=== PATIENT | female | born 1955 | race Hispanic/Latino ===

== ENCOUNTER 2023-08-06 20:24 | Emergency (ER) | payer MEDICARE, SELFPAY ==
[2023-08-06 21:09] LABS: #Basophils 0.1 thou/uL (0.0-0.2); #Eosinphils 0.5 thou/uL (0.0-0.7); #Monocytes 0.6 thou/uL (0.11-0.59); #Neutrophils 6.2 thou/uL (1.40-6.50); %Basophils 0.7 % (0.0-1.0); %Monocytes 6.5 % (0.0-10.0); %Neutrophils 68.4 % (42.0-75.0); Hematocrit 29.1 % (36.0-47.0); Hemoglobin 9.9 g/dL (12.0-16.0); Mean Corpuscular Volume 82.2 fl (78.0-98.0); Mean Platelet Volume 9.4 fL (7.4-10.4); Platelet Count 274 10x3/uL (130-400); Red Blood Cell (RBC) Count 3.54 mill/uL (4.20-5.40); White Blood Cell (WBC) Count 9.1 10x3/uL (4.8-10.8)
[2023-08-06 21:35] LABS: ALT (SGPT) 9 U/L (8-55); AST (SGOT) 11 U/L (5-34); Albumin 3.3 g/dL (3.4-4.8); Alkaline Phosphatase 139 U/L (40-110); Anion Gap 12 mmol/L (10-20); BUN (Urea Nitrogen) 37 mg/dL (9.8-20.1); Bilirubin, Total 0.2 mg/dL (0.2-1.2); Calc. Creatinine Clearance 0 mL/min (70-130); Calcium 8.4 mg/dL (7.8-10.44); Carbon Dioxide 21 mmol/L (23-31); Chloride 100 mmol/L (98-107); Estimated GFR 14; Globulin 3.7 g/dL (2.4-3.5); Glucose 280 mg/dL (80-115); Lipase 45 U/L (8-78); Potassium 4.1 mmol/L (3.5-5.1); Sodium 129 mmol/L (136-145)
[2023-08-07 01:28] LABS: Pregnancy Test - Urine (BHCG) Negative (Negative)
[2023-08-07 01:29] LABS: Pregu Control Background? CLEAR/WHITE (CLR/WHITE); Pregu Control Bar Appear? YES (CONTROL BAR); Specific Gravity 1.007 (1.002-1.036)
[2023-08-07] MEDS ORDERED: Docusate 100 MG CAP PO SCH (01:30)
[2023-08-07 01:49] LABS: Troponin I Less than 0.010 ng/mL (< 0.028)
[2023-08-07 03:03] LABS: Bacteria/HPF None Seen HPF (None Seen); Bilirubin Negative (Negative); Blood, Urine Trace (Negative); CAUTI Indications for Culture Pelvic or flank pain; Clarity Clear (Clear); Glucose, Urine (Dipstick) 300 mg/dL (Negative); Ketone, Urine Negative (Negative); Leukocyte Negative Leu/uL (Negative); Nitrite Negative (Negative); Protein, Urine (Dipstick) 300 mg/dL (Neg-Trace); RBC/HPF None Seen HPF (0-3); Specific Gravity, Urine 1.007 (1.002-1.036); Squamous Epithelial None Seen HPF (0-3); Urobilinogen Normal mg/dL (Less than 2); WBC/HPF 0-3 HPF (0-3); pH, Urine 6.5 (5.0-9.0)
[2023-08-07 03:05] LABS: Urine Culture Reflex No No
== END 2023-08-07 03:30 | disposition home or self-care (01) ==
LOC: ERS 20:24
DX: R10.12 Left upper quadrant pain (principal); I12.9 Hypertensive chronic kidney disease with stage 1 through stage 4 chronic kidney disease, or unspecified chronic kidney disease; E11.22 Type 2 diabetes mellitus with diabetic chronic kidney disease; N18.9 Chronic kidney disease, unspecified; Z79.899 Other long term (current) drug therapy
CPT/HCPCS: 36415; 71045; 80053; 81001; 81025; 83690; 84484; 85025; 93005; 96360

== ENCOUNTER 2024-04-30 01:48 | Inpatient (IN) | payer MEDICARE ==
[2024-04-30] MEDS ORDERED: Acetaminophen 650 MG Suppository PR PRN (02:47)
[2024-04-30] MEDS ORDERED: Ondansetron ODT 4 MG TAB PO PRN (02:47)
[2024-04-30] MEDS ORDERED: Ondansetron PF 4 MG/2 ML Vial IVP PRN (02:47)
[2024-04-30] MEDS ORDERED: diphenhydrAMINE 25 MG CAP PO PRN (02:57)
[2024-04-30 03:11] VITALS: BMI 28.0
[2024-04-30] MEDS: Racepinephrine 2.25% 0.5 ML NEB NEB PRN (03:14)
[2024-04-30] MEDS: Acetaminophen 325 MG TAB PO SCH (03:44)
[2024-04-30 04:27] LABS: #Basophils Less than 0.03 10x3/uL (0.0-0.2); #Eosinophils Less than 0.03 10x3/uL (0.0-0.7); %Basophils 0.2 % (0.0-1.0); %Lymphocytes 9.3 % (21.0-51.0); %Monocytes 1.5 % (0.0-10.0); %Neutrophils 88.5 % (42.0-75.0); Hematocrit 30.2 % (36.0-47.0); Hemoglobin 9.1 g/dL (12.0-16.0); Mean Corpuscular HGB CONC 30.1 g/dL (32.0-36.0); Mean Corpuscular Hemoglobin 29.1 pg (27.0-31.0); Mean Corpuscular Volume 96.5 fL (78.0-98.0); Mean Platelet Volume 8.4 fL (7.4-10.4); Platelet Count 218 10x3/uL (130-400); RBC Distribution Width 18.2 % (11.5-14.5); Red Blood Cell (RBC) Count 3.13 mill/uL (4.20-5.40)
[2024-04-30 04:54] LABS: ALT (SGPT) 15 U/L (8-55); AST (SGOT) 18 U/L (5-34); Albumin 2.4 g/dL (3.4-4.8); Alkaline Phosphatase 176 U/L (40-110); Anion Gap 19 mmol/L (10-20); BUN (Urea Nitrogen) 33 mg/dL (9.8-20.1); Bilirubin, Total 0.5 mg/dL (0.2-1.2); Calc. Creatinine Clearance 17 mL/min (70-130); Carbon Dioxide 21 mmol/L (23-31); Chloride 92 mmol/L (98-107); Estimated GFR 14; Globulin 4.2 g/dL (2.4-3.5); Glucose 157 mg/dL (80-115); Magnesium 1.9 mg/dL (1.6-2.6); Potassium 5.4 mmol/L (3.5-5.1); Protein, Total 6.6 g/dL (5.8-8.1); Sodium 127 mmol/L (136-145)
[2024-04-30] MEDS ORDERED: Furosemide 40 MG (4 mL) VIAL SLOW IVP SCH (06:00)
[2024-04-30] MEDS: Levothyroxine Sodium 25 MCG TAB PO SCH ×2 (06:09→11:04)
[2024-04-30] MEDS: Dexamethasone 4 mg/ml Vial SLOW IVP SCH (06:10)
[2024-04-30] MEDS: Dronedarone HCl 400 MG TAB PO SCH (09:24)
[2024-04-30] MEDS: Famotidine/PF 20 mg/2ml Vial SLOW IVP SCH (09:24)
[2024-04-30] MEDS: Metoprolol Tartrate 25 MG TAB PO SCH (09:25)
[2024-04-30] MEDS: NIFEdipine XL 30 MG ER.TAB PO SCH (09:25)
[2024-04-30] MEDS: Apixaban 5 MG TAB PO SCH (09:25)
[2024-04-30] MEDS: guaiFENesin ER 600 MG TAB PO SCH (09:26)
[2024-04-30] MEDS: Cholecalciferol 1,000 UNITS (25 MCG) TAB PO SCH (09:26)
[2024-04-30] MEDS: Famotidine 20 MG TAB PO SCH (09:26)
[2024-04-30 11:08] LABS: HBSAB Concentration Less than 8.00 mIU/mL; HBsAg Index 0.32 S/CO (0-0.99); Hep B Core Total Ab NONREACTIVE (NonReactive); Hep B Core Total Index 0.27 S/CO (0-0.79); Hep B Surf AB NONREACTIVE (NonReactive); Hep B Surf Ag NONREACTIVE S/CO (NonReactive); Hep C IgG Ab NONREACTIVE S/CO (NonReactive); Hep C Index 0.18 S/CO (0-0.79)
[2024-04-30] MEDS ORDERED: Glucagon 1 MG/ML KIT IM PRN (12:45)
[2024-04-30] MEDS ORDERED: Dextrose 50% Abboject 50 ML SYRINGE SLOW IVP PRN (12:45)
[2024-04-30] MEDS ORDERED: Dextrose 5% in Water 1,000 ML IV PRN (12:45)
[2024-04-30] MEDS: Ipratropium/Albuterol 3 ML NEB NEB SCH (12:58)
[2024-04-30] MEDS: Racepinephrine 2.25% 0.5 ML NEB NEB SCH (12:58)
[2024-04-30 14:17] VITALS: BMI 28.0
[2024-04-30] MEDS ORDERED: Acetaminophen 325 MG TAB PO PRN (15:54)
[2024-04-30] MEDS ORDERED: Racepinephrine 2.25% 0.5 ML NEB NEB SCH (21:00)
[2024-04-30] MEDS: FLU (Fluad Triv) TS24-25 (65UP)/MF59C/PF 45 MCG/0.5 ML Syringe IM ONE (21:33)
[2024-04-30] MEDS: Insulin Lispro 100 UNIT/ML 10 ML VIAL SC PRN (22:22)
[2024-05-01 04:34] LABS: #Basophils Less than 0.03 10x3/uL (0.0-0.2); #Eosinophils Less than 0.03 10x3/uL (0.0-0.7); %Basophils 0.2 % (0.0-1.0); %Lymphocytes 13.4 % (21.0-51.0); %Monocytes 6.9 % (0.0-10.0); %Neutrophils 79.1 % (42.0-75.0); Hematocrit 23.8 % (36.0-47.0); Hemoglobin 7.3 g/dL (12.0-16.0); Mean Corpuscular HGB CONC 30.7 g/dL (32.0-36.0); Mean Corpuscular Hemoglobin 28.5 pg (27.0-31.0); Mean Platelet Volume 8.4 fL (7.4-10.4); Platelet Count 260 10x3/uL (130-400); RBC Distribution Width 18.1 % (11.5-14.5); Red Blood Cell (RBC) Count 2.56 mill/uL (4.20-5.40)
[2024-05-01] MEDS: Levothyroxine Sodium 25 MCG TAB PO SCH (05:05)
[2024-05-01 05:11] LABS: Anion Gap 15 mmol/L (10-20); BUN (Urea Nitrogen) 18 mg/dL (9.8-20.1); Calc. Creatinine Clearance 30 mL/min (70-130); Calcium 7.7 mg/dL (7.8-10.44); Carbon Dioxide 26 mmol/L (23-31); Chloride 96 mmol/L (98-107); Estimated GFR 26; Glucose 199 mg/dL (80-115); Potassium 4.5 mmol/L (3.5-5.1); Sodium 132 mmol/L (136-145)
[2024-05-01] MEDS: Famotidine/PF 20 mg/2ml Vial SLOW IVP SCH (08:05)
[2024-05-01] MEDS: Famotidine 20 MG TAB PO SCH (08:05)
[2024-05-01] MEDS: Aquaphor 2.8 oz 80 GM JAR TOP SCH (08:05)
[2024-05-01] MEDS ORDERED: Aquaphor 10 GM TUBE TOP SCH (09:00)
[2024-05-01] MEDS: Amoxicillin/Potassium Clav 500 MG TAB PO SCH (20:32)
[2024-05-02 04:38] LABS: #Basophils Less than 0.03 10x3/uL (0.0-0.2); #Eosinophils Less than 0.03 10x3/uL (0.0-0.7); %Lymphocytes 5.9 % (21.0-51.0); %Neutrophils 89.7 % (42.0-75.0); Hematocrit 25.9 % (36.0-47.0); Hemoglobin 7.7 g/dL (12.0-16.0); Mean Corpuscular HGB CONC 29.7 g/dL (32.0-36.0); Mean Corpuscular Hemoglobin 28.7 pg (27.0-31.0); Mean Corpuscular Volume 96.6 fL (78.0-98.0); Mean Platelet Volume 8.6 fL (7.4-10.4); Platelet Count 231 10x3/uL (130-400); RBC Distribution Width 18.3 % (11.5-14.5); Red Blood Cell (RBC) Count 2.68 mill/uL (4.20-5.40)
[2024-05-02 05:13] LABS: Anion Gap 20 mmol/L (10-20); BUN (Urea Nitrogen) 31 mg/dL (9.8-20.1); Calc. Creatinine Clearance 21 mL/min (70-130); Calcium 7.9 mg/dL (7.8-10.44); Carbon Dioxide 21 mmol/L (23-31); Chloride 92 mmol/L (98-107); Estimated GFR 17; Glucose 252 mg/dL (80-115); Potassium 5.1 mmol/L (3.5-5.1); Sodium 128 mmol/L (136-145)
[2024-05-02] MEDS ORDERED: Heparin 10,000 UNITS/ 10 ML VIAL ONE (10:26)
[2024-05-02] MEDS: EPOETIN ALFA-EPBX (ESRD) 10,000 UNITS/ML VIAL IVP SCH (11:50)
[2024-05-02] MEDS: guaiFENesin ER 600 MG TAB PO SCH (20:09)
[2024-05-02] MEDS: Ipratropium/Albuterol 3 ML NEB NEB PRN (22:05)
[2024-05-03 17:06] VITALS: BP 137/65
[2024-05-03 21:15] VITALS: TEMP 98.6
== END 2024-05-03 23:35 | disposition short-term general hospital (02) | DRG 154 ==
LOC: IMCU/EMU 02:42 → CCU 02:44
PROVIDERS: ADMIT Student in an Organized Health Care Education/Training Program; ATTEND Internal Medicine
DX: J38.6 Stenosis of larynx (principal); N18.6 End stage renal disease; I50.42 Chronic combined systolic (congestive) and diastolic (congestive) heart failure; E87.1 Hypo-osmolality and hyponatremia; I48.91 Unspecified atrial fibrillation; Z79.01 Long term (current) use of anticoagulants; Z79.899 Other long term (current) drug therapy; E87.5 Hyperkalemia; D64.9 Anemia, unspecified; E11.22 Type 2 diabetes mellitus with diabetic chronic kidney disease; L21.9 Seborrheic dermatitis, unspecified; J01.90 Acute sinusitis, unspecified; Z79.4 Long term (current) use of insulin
CPT/HCPCS: 36415; 36416; 70491; 71045; 80048; 80053; 82607; 82805; 83090; 83605; 83735; 83880; 84443; 84484; 85025; 86704; 86706; 86803; 86850; 86900; 86901; 87040; 87340; 90935; 93005; 94640; 96374; 97139; G0257; J1100; J1644; J1815; J3490; J7620; Q5105; Q9967

== ENCOUNTER 2024-05-07 16:40 | Inpatient (IN) | payer MEDICARE ==
[2024-05-08] MEDS ORDERED: Acetaminophen 650 MG Suppository PR PRN (19:59)
[2024-05-08] MEDS ORDERED: Ondansetron PF 4 MG/2 ML Vial IVP PRN (19:59)
[2024-05-08] MEDS: Famotidine 20 MG TAB PO SCH (21:51)
[2024-05-08] MEDS: Famotidine/PF 20 mg/2ml Vial SLOW IVP SCH (22:02)
[2024-05-09 01:52] LABS: #Basophils Less than 0.03 10x3/uL (0.0-0.2); %Basophils 0.2 % (0.0-1.0); %Eosinophils 5.5 % (0.0-10.0); %Lymphocytes 24.5 % (21.0-51.0); %Monocytes 10.6 % (0.0-10.0); %Neutrophils 58.8 % (42.0-75.0); Hematocrit 28.6 % (36.0-47.0); Hemoglobin 8.6 g/dL (12.0-16.0); Mean Corpuscular HGB CONC 30.1 g/dL (32.0-36.0); Mean Corpuscular Hemoglobin 29.4 pg (27.0-31.0); Mean Corpuscular Volume 97.6 fL (78.0-98.0); Mean Platelet Volume 8.6 fL (7.4-10.4); Platelet Count 246 10x3/uL (130-400); RBC Distribution Width 16.5 % (11.5-14.5); Red Blood Cell (RBC) Count 2.93 mill/uL (4.20-5.40)
[2024-05-09 02:27] LABS: Albumin 2.1 g/dL (3.4-4.8); Chloride 94 mmol/L (98-107); Potassium 4.9 mmol/L (3.5-5.1); Sodium 123 mmol/L (136-145)
[2024-05-09 02:28] LABS: Calcium 7.2 mg/dL (7.8-10.44); Glucose 120 mg/dL (80-115)
[2024-05-09 02:29] LABS: Globulin 3.2 g/dL (2.4-3.5); Protein, Total 5.3 g/dL (5.8-8.1)
[2024-05-09 02:30] LABS: Anion Gap 13 mmol/L (10-20); Carbon Dioxide 21 mmol/L (23-31)
[2024-05-09 02:31] LABS: Alkaline Phosphatase 126 U/L (40-110); Bilirubin, Total 0.3 mg/dL (0.2-1.2)
[2024-05-09 02:32] LABS: BUN (Urea Nitrogen) 34 mg/dL (9.8-20.1); Calc. Creatinine Clearance 27 mL/min (70-130); Estimated GFR 23
[2024-05-09 02:34] LABS: ALT (SGPT) Less than 5 U/L (8-55); AST (SGOT) 15 U/L (5-34)
[2024-05-09] MEDS: Sodium Chloride 0.9% 1,000 ML IV SCH (02:51)
[2024-05-09] MEDS ORDERED: traMADol HCl 50 MG TAB PO PRN (03:27)
[2024-05-09] MEDS ORDERED: Ipratropium/Albuterol 3 ML NEB NEB PRN (03:27)
[2024-05-09] MEDS ORDERED: Loperamide HCl 2 MG CAP PER TUBE PRN (03:27)
[2024-05-09] MEDS ORDERED: Dextrose 50% Abboject 50 ML SYRINGE SLOW IVP PRN (03:30)
[2024-05-09] MEDS ORDERED: Insulin Lispro 100 UNIT/ML 10 ML VIAL SC PRN (03:30)
[2024-05-09] MEDS ORDERED: Glucagon 1 MG/ML KIT IM PRN (03:30)
[2024-05-09] MEDS ORDERED: Dextrose 5% in Water 1,000 ML IV PRN (03:30)
[2024-05-09] MEDS: Scopolamine 1 mg/72 hour Patch TD SCH (05:28)
[2024-05-09] MEDS: Levothyroxine Sodium 25 MCG TAB PO SCH (05:32)
[2024-05-09] MEDS ORDERED: NIFEdipine XL 30 MG ER.TAB PO SCH (09:00)
[2024-05-09] MEDS ORDERED: Heparin 10,000 UNITS/ 10 ML VIAL ONE (11:36)
[2024-05-09] MEDS: Calcium Acetate 667 MG CAP PO SCH (13:16)
[2024-05-09] MEDS: Apixaban 5 MG TAB PO SCH (14:22)
[2024-05-09] MEDS: Dronedarone HCl 400 MG TAB PO SCH (14:22)
[2024-05-09] MEDS: Cholecalciferol 1,000 UNITS (25 MCG) TAB PO SCH (14:22)
[2024-05-09] MEDS: Famotidine 20 MG TAB PO SCH (14:22)
[2024-05-09] MEDS: Famotidine/PF 20 mg/2ml Vial SLOW IVP SCH (14:23)
[2024-05-09] MEDS: Metoprolol Tartrate 25 MG TAB PO SCH (14:24)
[2024-05-09] MEDS: Acetaminophen 325 MG TAB PO PRN (23:48)
[2024-05-11] MEDS: Tuberculin PPD 0.1 ML SYRINGE (10 TEST VIAL) I-DERMAL SCH (13:13)
[2024-05-12 05:53] LABS: #Basophils Less than 0.03 10x3/uL (0.0-0.2); %Basophils 0.4 % (0.0-1.0); %Eosinophils 3.5 % (0.0-10.0); %Lymphocytes 21.4 % (21.0-51.0); %Monocytes 15.5 % (0.0-10.0); Hematocrit 23.7 % (36.0-47.0); Hemoglobin 7.2 g/dL (12.0-16.0); Mean Corpuscular HGB CONC 30.4 g/dL (32.0-36.0); Mean Corpuscular Hemoglobin 29.6 pg (27.0-31.0); Mean Corpuscular Volume 97.5 fL (78.0-98.0); Mean Platelet Volume 8.8 fL (7.4-10.4); Platelet Count 191 10x3/uL (130-400); RBC Distribution Width 15.7 % (11.5-14.5); Red Blood Cell (RBC) Count 2.43 mill/uL (4.20-5.40)
[2024-05-12 07:50] LABS: Anion Gap 14 mmol/L (10-20); BUN (Urea Nitrogen) 42 mg/dL (9.8-20.1); Calc. Creatinine Clearance 22 mL/min (70-130); Calcium 7.5 mg/dL (7.8-10.44); Carbon Dioxide 22 mmol/L (23-31); Chloride 91 mmol/L (98-107); Estimated GFR 16; Glucose 100 mg/dL (80-115); Potassium 5.5 mmol/L (3.5-5.1); Sodium 121 mmol/L (136-145)
[2024-05-12 08:52] LABS: HBSAB Concentration Less than 8.00 mIU/mL; HBsAg Index 0.36 S/CO (0-0.99); Hep B Core Total Ab NONREACTIVE (NonReactive); Hep B Surf AB NONREACTIVE (NonReactive); Hep B Surf Ag NONREACTIVE S/CO (NonReactive); Hep C IgG Ab NONREACTIVE S/CO (NonReactive); Hep C Index 0.12 S/CO (0-0.79)
[2024-05-12] MEDS ORDERED: Epoetin (ESRD) 20,000 UNITS/ML MDV IVP SCH (10:30)
[2024-05-12] MEDS: EPOETIN ALFA-EPBX (ESRD) 10,000 UNITS/ML VIAL IVP SCH (17:00)
[2024-05-12] MEDS: Insulin Lispro 100 UNIT/ML 10 ML VIAL SC PRN (17:18)
[2024-05-13 05:45] LABS: #Basophils Less than 0.03 10x3/uL (0.0-0.2); %Basophils 0.4 % (0.0-1.0); %Eosinophils 2.9 % (0.0-10.0); %Lymphocytes 27.2 % (21.0-51.0); %Monocytes 16.6 % (0.0-10.0); %Neutrophils 52.5 % (42.0-75.0); Hematocrit 23.9 % (36.0-47.0); Hemoglobin 7.6 g/dL (12.0-16.0); Mean Corpuscular HGB CONC 31.8 g/dL (32.0-36.0); Mean Corpuscular Hemoglobin 30.2 pg (27.0-31.0); Mean Corpuscular Volume 94.8 fL (78.0-98.0); Mean Platelet Volume 8.2 fL (7.4-10.4); Platelet Count 237 10x3/uL (130-400); RBC Distribution Width 15.7 % (11.5-14.5); Red Blood Cell (RBC) Count 2.52 mill/uL (4.20-5.40)
[2024-05-13 06:07] LABS: Anion Gap 9 mmol/L (10-20); BUN (Urea Nitrogen) 17 mg/dL (9.8-20.1); Calc. Creatinine Clearance 35 mL/min (70-130); Calcium 7.7 mg/dL (7.8-10.44); Carbon Dioxide 28 mmol/L (23-31); Chloride 95 mmol/L (98-107); Estimated GFR 28; Glucose 81 mg/dL (80-115); Potassium 4.4 mmol/L (3.5-5.1); Sodium 128 mmol/L (136-145)
[2024-05-13] MEDS: FLU (Fluad Triv) TS24-25 (65UP)/MF59C/PF 45 MCG/0.5 ML Syringe IM ONE (08:33)
[2024-05-14 06:55] LABS: Anion Gap 13 mmol/L (10-20); BUN (Urea Nitrogen) 23 mg/dL (9.8-20.1); Calc. Creatinine Clearance 27 mL/min (70-130); Calcium 7.8 mg/dL (7.8-10.44); Carbon Dioxide 26 mmol/L (23-31); Chloride 93 mmol/L (98-107); Estimated GFR 20; Glucose 82 mg/dL (80-115); Potassium 4.7 mmol/L (3.5-5.1); Sodium 127 mmol/L (136-145)
[2024-05-14] MEDS ORDERED: Heparin 10,000 UNITS/ 10 ML VIAL ONE (08:48)
[2024-05-14] MEDS: Ondansetron ODT 4 MG TAB PO PRN (15:53)
[2024-05-15 06:19] LABS: #Basophils 0.04 10x3/uL (0.0-0.2); %Basophils 0.9 % (0.0-1.0); %Lymphocytes 21.1 % (21.0-51.0); %Monocytes 12.5 % (0.0-10.0); %Neutrophils 62.3 % (42.0-75.0); Hemoglobin 7.6 g/dL (12.0-16.0); Mean Corpuscular HGB CONC 31.7 g/dL (32.0-36.0); Mean Corpuscular Hemoglobin 29.7 pg (27.0-31.0); Mean Corpuscular Volume 93.8 fL (78.0-98.0); Mean Platelet Volume 8.4 fL (7.4-10.4); Platelet Count 228 10x3/uL (130-400); Red Blood Cell (RBC) Count 2.56 mill/uL (4.20-5.40)
[2024-05-15 06:35] LABS: Anion Gap 10 mmol/L (10-20); BUN (Urea Nitrogen) 12 mg/dL (9.8-20.1); Calc. Creatinine Clearance 39 mL/min (70-130); Calcium 7.8 mg/dL (7.8-10.44); Carbon Dioxide 27 mmol/L (23-31); Chloride 96 mmol/L (98-107); Estimated GFR 31; Glucose 81 mg/dL (80-115); Potassium 3.8 mmol/L (3.5-5.1); Sodium 129 mmol/L (136-145)
[2024-05-15] MEDS: Scopolamine 1 mg/72 hour Patch TD SCH (09:36)
[2024-05-15] MEDS: diphenhydrAMINE 25 MG CAP PER TUBE PRN (20:49)
[2024-05-16 05:58] LABS: Anion Gap 12 mmol/L (10-20); BUN (Urea Nitrogen) 15 mg/dL (9.8-20.1); Calc. Creatinine Clearance 29 mL/min (70-130); Calcium 7.9 mg/dL (7.8-10.44); Carbon Dioxide 26 mmol/L (23-31); Chloride 96 mmol/L (98-107); Estimated GFR 22; Glucose 83 mg/dL (80-115); Potassium 4.2 mmol/L (3.5-5.1); Sodium 130 mmol/L (136-145)
[2024-05-16] MEDS ORDERED: Heparin 10,000 UNITS/ 10 ML VIAL ONE (08:54)
[2024-05-17 04:38] LABS: Anion Gap 10 mmol/L (10-20); BUN (Urea Nitrogen) 8 mg/dL (9.8-20.1); Calc. Creatinine Clearance 39 mL/min (70-130); Carbon Dioxide 29 mmol/L (23-31); Chloride 97 mmol/L (98-107); Estimated GFR 31; Glucose 85 mg/dL (80-115); Potassium 3.8 mmol/L (3.5-5.1); Sodium 132 mmol/L (136-145)
[2024-05-17] MEDS: Benzonatate 100 MG CAP PO SCH (13:12)
[2024-05-18 05:27] LABS: #Basophils 0.04 10x3/uL (0.0-0.2); %Basophils 0.6 % (0.0-1.0); %Lymphocytes 23.3 % (21.0-51.0); %Monocytes 8.3 % (0.0-10.0); %Neutrophils 61.5 % (42.0-75.0); Hematocrit 26.3 % (36.0-47.0); Hemoglobin 8.3 g/dL (12.0-16.0); Mean Corpuscular HGB CONC 31.6 g/dL (32.0-36.0); Mean Corpuscular Hemoglobin 29.5 pg (27.0-31.0); Mean Corpuscular Volume 93.6 fL (78.0-98.0); Mean Platelet Volume 8.3 fL (7.4-10.4); Platelet Count 227 10x3/uL (130-400); RBC Distribution Width 14.8 % (11.5-14.5); Red Blood Cell (RBC) Count 2.81 mill/uL (4.20-5.40)
[2024-05-18 06:07] LABS: Anion Gap 10 mmol/L (10-20); BUN (Urea Nitrogen) 11 mg/dL (9.8-20.1); Calc. Creatinine Clearance 27 mL/min (70-130); Carbon Dioxide 26 mmol/L (23-31); Chloride 97 mmol/L (98-107); Estimated GFR 20; Glucose 81 mg/dL (80-115); Potassium 4.1 mmol/L (3.5-5.1); Sodium 129 mmol/L (136-145)
[2024-05-19 10:47] LABS: Anion Gap 12 mmol/L (10-20); BUN (Urea Nitrogen) 15 mg/dL (9.8-20.1); Calc. Creatinine Clearance 21 mL/min (70-130); Calcium 8.3 mg/dL (7.8-10.44); Carbon Dioxide 25 mmol/L (23-31); Chloride 95 mmol/L (98-107); Estimated GFR 15; Glucose 115 mg/dL (80-115); Potassium 4.7 mmol/L (3.5-5.1); Sodium 127 mmol/L (136-145)
[2024-05-19] MEDS ORDERED: Heparin 10,000 UNITS/ 10 ML VIAL ONE (14:40)
[2024-05-19] MEDS: Metoprolol Tartrate 25 MG TAB PO SCH (20:38)
[2024-05-21 10:22] LABS: #Basophils 0.03 10x3/uL (0.0-0.2); %Basophils 0.6 % (0.0-1.0); %Eosinophils 8.3 % (0.0-10.0); %Lymphocytes 29.1 % (21.0-51.0); %Monocytes 11.2 % (0.0-10.0); %Neutrophils 50.6 % (42.0-75.0); Hematocrit 24.7 % (36.0-47.0); Hemoglobin 7.9 g/dL (12.0-16.0); Mean Corpuscular Hemoglobin 30.2 pg (27.0-31.0); Mean Corpuscular Volume 94.3 fL (78.0-98.0); Mean Platelet Volume 8.4 fL (7.4-10.4); Platelet Count 211 10x3/uL (130-400); RBC Distribution Width 14.6 % (11.5-14.5); Red Blood Cell (RBC) Count 2.62 mill/uL (4.20-5.40)
[2024-05-21] MEDS ORDERED: Heparin 10,000 UNITS/ 10 ML VIAL ONE (13:48)
[2024-05-21 18:41] LABS: Anion Gap 9 mmol/L (10-20); BUN (Urea Nitrogen) 12 mg/dL (9.8-20.1); Calc. Creatinine Clearance 50 mL/min (70-130); Calcium 7.8 mg/dL (7.8-10.44); Carbon Dioxide 28 mmol/L (23-31); Chloride 97 mmol/L (98-107); Estimated GFR 42; Glucose 145 mg/dL (80-115); Potassium 3.2 mmol/L (3.5-5.1); Sodium 131 mmol/L (136-145)
[2024-05-22] MEDS: Ipratropium/Albuterol 3 ML NEB NEB SCH (14:59)
[2024-05-22] MEDS: Simethicone Chewable 80 MG TAB PO PRN (20:16)
[2024-05-23 05:38] LABS: #Basophils 0.11 10x3/uL (0.0-0.2); %Basophils 1.2 % (0.0-1.0); %Eosinophils 0.6 % (0.0-10.0); %Lymphocytes 16.5 % (21.0-51.0); %Monocytes 15.5 % (0.0-10.0); %Neutrophils 64.2 % (42.0-75.0); Hematocrit 32.2 % (36.0-47.0); Hemoglobin 10.2 g/dL (12.0-16.0); Mean Corpuscular HGB CONC 31.7 g/dL (32.0-36.0); Mean Corpuscular Hemoglobin 29.8 pg (27.0-31.0); Mean Corpuscular Volume 94.2 fL (78.0-98.0); Mean Platelet Volume 8.6 fL (7.4-10.4); Platelet Count 256 10x3/uL (130-400); RBC Distribution Width 14.6 % (11.5-14.5); Red Blood Cell (RBC) Count 3.42 mill/uL (4.20-5.40)
[2024-05-23 05:59] LABS: Anion Gap 13 mmol/L (10-20); BUN (Urea Nitrogen) 25 mg/dL (9.8-20.1); Calc. Creatinine Clearance 26 mL/min (70-130); Calcium 8.2 mg/dL (7.8-10.44); Carbon Dioxide 22 mmol/L (23-31); Chloride 95 mmol/L (98-107); Estimated GFR 19; Glucose 97 mg/dL (80-115); Magnesium 1.8 mg/dL (1.6-2.6); Sodium 126 mmol/L (136-145)
[2024-05-23] MEDS ORDERED: Heparin 10,000 UNITS/ 10 ML VIAL ONE (11:01)
[2024-05-23] MEDS: Ondansetron PF 4 MG/2 ML Vial IVP PRN (15:45)
[2024-05-23] MEDS ORDERED: Metoclopramide HCl 10 MG (2 mL) VIAL IVP PRN (17:53)
[2024-05-23] MEDS ORDERED: Vancomycin 1 GM in Premix 1 BAG IVPB SCH ×2 (18:40→21:00)
[2024-05-23] MEDS ORDERED: HOLD VANCOMYCIN FOR LEVEL >20 IVP SCH (19:00)
[2024-05-23] MEDS ORDERED: Vancomycin Dose by Levels Sliding Scale (Wt 71-99) FS SCH (19:00)
[2024-05-23] MEDS ORDERED: Sodium Chloride 0.9% 1,000 ML IV SCH (20:30)
[2024-05-23] MEDS: Albumin 25% 25 GM (100 mL) BOT IVPB SCH (20:48)
[2024-05-23] MEDS: Sodium Chloride 0.9% 500 ML IV SCH ×2 (20:49→23:10)
[2024-05-23] MEDS: Midodrine HCl 5 MG TAB PO SCH (20:49)
[2024-05-23 20:59] LABS: #Basophils Less than 0.03 10x3/uL (0.0-0.2); #Eosinophils Less than 0.03 10x3/uL (0.0-0.7); %Basophils 0.3 % (0.0-1.0); %Eosinophils 0.1 % (0.0-10.0); %Lymphocytes 15.8 % (21.0-51.0); %Monocytes 18.8 % (0.0-10.0); %Neutrophils 61.4 % (42.0-75.0); Hematocrit 25.3 % (36.0-47.0); Mean Corpuscular HGB CONC 31.6 g/dL (32.0-36.0); Mean Corpuscular Hemoglobin 29.4 pg (27.0-31.0); Mean Platelet Volume 8.4 fL (7.4-10.4); Platelet Count 191 10x3/uL (130-400); RBC Distribution Width 14.4 % (11.5-14.5); Red Blood Cell (RBC) Count 2.72 mill/uL (4.20-5.40)
[2024-05-23] MEDS: Cefepime 1 GM in Sodium Chloride 0.9% 100 ML IVPB SCH (21:08)
[2024-05-23 21:10] LABS: Magnesium 1.7 mg/dL (1.6-2.6)
[2024-05-23] MEDS: Vancomycin (BATCH) 1.5 GM in Premix 1 BAG IVPB SCH (21:50)
[2024-05-24] MEDS: Sodium Chloride 0.9% 500 ML IV SCH (02:07)
[2024-05-24] MEDS: NOREPINEPHRINE 8 MG/250 ML-D5W 250 ML IVPB SCH (02:54)
[2024-05-24 05:24] LABS: Lactic Acid 1.25 mmol/L (0.5-2.2)
[2024-05-24 05:30] LABS: Anion Gap 9 mmol/L (10-20); BUN (Urea Nitrogen) 16 mg/dL (9.8-20.1); Calc. Creatinine Clearance 4 mL/min (70-130); Calcium 7.4 mg/dL (7.8-10.44); Carbon Dioxide 26 mmol/L (23-31); Chloride 100 mmol/L (98-107); Estimated GFR 27; Glucose 88 mg/dL (80-115); Potassium 2.9 mmol/L (3.5-5.1); Sodium 132 mmol/L (136-145)
[2024-05-24 05:46] LABS: Hematocrit 24.4 % (36.0-47.0); Hemoglobin 7.6 g/dL (12.0-16.0); Mean Corpuscular HGB CONC 31.1 g/dL (32.0-36.0); Mean Corpuscular Hemoglobin 29.7 pg (27.0-31.0); Mean Corpuscular Volume 95.3 fL (78.0-98.0); Mean Platelet Volume 8.7 fL (7.4-10.4); Platelet Count 205 10x3/uL (130-400); RBC Distribution Width 14.6 % (11.5-14.5); Red Blood Cell (RBC) Count 2.56 mill/uL (4.20-5.40)
[2024-05-24 06:14] LABS: Anisocytosis SLIGHT = 6-15 cells HPF (0-5); Band 30 % (5-11); Eosinophils 2 % (0-10); Hypochromia SLIGHT = 6-15 cells HPF (0-5); Lymphocytes 7 % (21-51); Macrocytosis SLIGHT = 6-15 cells HPF (0-5); Metamyelocyte 3 % (0-0); Monocytes 8 % (0-10); Neutrophil 49 % (42-75); Platelet Adequacy Comment Platelets Normal; Reactive Lymphocytes 1 % (0-10)
[2024-05-24] MEDS: Albumin 5% 25 GM (500 mL) BOT IVPB SCH (09:10)
[2024-05-24] MEDS: Potassium Chloride 20 MEQ TAB PO SCH (09:11)
[2024-05-25 06:14] LABS: Anion Gap 9 mmol/L (10-20); BUN (Urea Nitrogen) 32 mg/dL (9.8-20.1); Calc. Creatinine Clearance 25 mL/min (70-130); Calcium 7.8 mg/dL (7.8-10.44); Carbon Dioxide 26 mmol/L (23-31); Chloride 98 mmol/L (98-107); Estimated GFR 20; Glucose 108 mg/dL (80-115); Potassium 3.9 mmol/L (3.5-5.1); Sodium 129 mmol/L (136-145)
[2024-05-25 06:15] LABS: Hematocrit 25.8 % (36.0-47.0); Hemoglobin 7.8 g/dL (12.0-16.0); Mean Corpuscular HGB CONC 30.2 g/dL (32.0-36.0); Mean Corpuscular Hemoglobin 28.9 pg (27.0-31.0); Mean Corpuscular Volume 95.6 fL (78.0-98.0); Mean Platelet Volume 9.1 fL (7.4-10.4); Platelet Count 215 10x3/uL (130-400); RBC Distribution Width 14.6 % (11.5-14.5)
[2024-05-25 06:50] LABS: Anisocytosis MODERATE=16-30 cells HPF (0-5); Band 21 % (5-11); Eosinophils 5 % (0-10); Hypochromia SLIGHT = 6-15 cells HPF (0-5); Lymphocytes 8 % (21-51); Macrocytosis SLIGHT = 6-15 cells HPF (0-5); Monocytes 7 % (0-10); Neutrophil 57 % (42-75); Plasma Cells 1 % (0-0); Platelet Adequacy Comment Platelets Normal; Polychromasia SLIGHT = 2-3 cells HPF (0-2)
[2024-05-26 07:44] LABS: Vancomycin, Trough 12.3 ug/mL
[2024-05-26] MEDS: Vancomycin 1 GM in Premix 1 BAG IVPB SCH (12:45)
[2024-05-26] MEDS: Clotrimazole 1 % Cream 30 GM TUBE TOP SCH ×2 (16:15→21:06)
[2024-05-26] MEDS: EPOETIN ALFA-EPBX (ESRD) 10,000 UNITS/ML VIAL SC SCH (16:16)
[2024-05-26] MEDS: EPOETIN ALFA-EPBX (ESRD) 10,000 UNITS/ML VIAL IVP SCH (16:55)
[2024-05-27] MEDS ORDERED: EPINEPHrine 1 MG/ML VIAL ONE (09:21)
[2024-05-27] MEDS ORDERED: Lidocaine 1% (PF) 30 ML VIAL ONE (09:21)
[2024-05-27] MEDS ORDERED: Sodium Bicarbonate 2.5 MEQ/5 ML SDV ONE (10:39)
[2024-05-27] MEDS ORDERED: Iopamidol 300 61% 100 ML VIAL FS ONE (10:40)
[2024-05-27] MEDS ORDERED: Heparin 1,000 UNITS/500ML (ARTLINE) ONE (10:40)
[2024-05-27] MEDS ORDERED: Benzonatate 100 MG CAP ONE (14:32)
[2024-05-27] MEDS ORDERED: Acetaminophen 325 MG TAB ONE (14:32)
[2024-05-27] MEDS ORDERED: Scopolamine 1 mg/72 hour Patch ONE (14:32)
[2024-05-27] MEDS ORDERED: Vancomycin HCl 500 MG VIAL ONE (14:32)
[2024-05-27] MEDS ORDERED: Ipratropium/Albuterol 3 ML NEB ONE (15:42)
[2024-05-27] MEDS ORDERED: Calcium Acetate 667 MG CAP ONE (17:23)
[2024-05-27] MEDS ORDERED: diphenhydrAMINE 25 MG CAP ONE (17:23)
[2024-05-27] MEDS ORDERED: Dronedarone HCl 400 MG TAB ONE (17:23)
[2024-05-28] MEDS ORDERED: Calcium Acetate 667 MG CAP ONE (11:00)
[2024-05-28] MEDS ORDERED: Benzonatate 100 MG CAP ONE ×3 (15:45→20:33)
[2024-05-28] MEDS ORDERED: Cholecalciferol 1,000 UNITS (25 MCG) TAB ONE ×2 (20:33)
[2024-05-28] MEDS: Vancomycin HCl 500 MG in Sodium Chloride 0.9% 100 ML IVPB SCH (23:56)
[2024-05-29] MEDS ORDERED: Levothyroxine Sodium 25 MCG TAB ONE ×2 (05:47)
[2024-05-29 06:12] LABS: #Basophils 0.05 10x3/uL (0.0-0.2); %Basophils 0.6 % (0.0-1.0); %Eosinophils 7.8 % (0.0-10.0); %Lymphocytes 22.9 % (21.0-51.0); %Monocytes 10.9 % (0.0-10.0); Hematocrit 25.5 % (36.0-47.0); Hemoglobin 7.8 g/dL (12.0-16.0); Mean Corpuscular HGB CONC 30.6 g/dL (32.0-36.0); Mean Corpuscular Hemoglobin 28.8 pg (27.0-31.0); Mean Corpuscular Volume 94.1 fL (78.0-98.0); Mean Platelet Volume 8.9 fL (7.4-10.4); Platelet Count 211 10x3/uL (130-400); RBC Distribution Width 14.6 % (11.5-14.5); Red Blood Cell (RBC) Count 2.71 mill/uL (4.20-5.40)
[2024-05-29] MEDS ORDERED: EPINEPHrine 1 MG/ML VIAL ONE (06:44)
[2024-05-29] MEDS ORDERED: Lidocaine 2% PF 5 ML VIAL ONE (06:44)
[2024-05-29] MEDS ORDERED: Bupivacaine PF 0.5% 30 ML VIAL ONE (06:44)
[2024-05-29 06:57] LABS: Anion Gap 10 mmol/L (10-20); BUN (Urea Nitrogen) 58 mg/dL (9.8-20.1); Calc. Creatinine Clearance 18 mL/min (70-130); Calcium 8.2 mg/dL (7.8-10.44); Carbon Dioxide 27 mmol/L (23-31); Chloride 97 mmol/L (98-107); Estimated GFR 12; Glucose 117 mg/dL (80-115); Potassium 5.5 mmol/L (3.5-5.1); Sodium 128 mmol/L (136-145)
[2024-05-29] MEDS ORDERED: Midazolam HCl 2 mg/2 ml Vial ONE (07:19)
[2024-05-29] MEDS ORDERED: Vasopressin 20 UNITS/ML VIAL ONE (07:22)
[2024-05-29] MEDS ORDERED: Ipratropium/Albuterol 3 ML NEB ONE (07:36)
[2024-05-29] MEDS ORDERED: PROPOFOL 20 ML ONE (07:52)
[2024-05-29] MEDS ORDERED: ePHEDrine Sulfate 50 MG/10 ML VIAL ONE (07:53)
[2024-05-29] MEDS ORDERED: fentaNYL 50 mcg/mL 1 mL Vial ONE (08:32)
[2024-05-29] MEDS ORDERED: PHENYLEPHRINE-NS 100 MCG/ML 10 ML SYRINGE ONE (08:42)
[2024-05-29] MEDS ORDERED: Ondansetron PF 4 MG/2 ML Vial ONE (08:45)
[2024-05-29] MEDS ORDERED: Dexamethasone 20 MG/5 ML VIAL ONE (08:45)
[2024-05-29] MEDS ORDERED: Famotidine 20 MG TAB ONE (10:00)
[2024-05-29] MEDS ORDERED: Benzonatate 100 MG CAP ONE (10:00)
[2024-05-29] MEDS ORDERED: Dronedarone HCl 400 MG TAB ONE (10:00)
[2024-05-29] MEDS ORDERED: Calcium Acetate 667 MG CAP ONE (10:00)
[2024-05-29] MEDS ORDERED: Cholecalciferol 1,000 UNITS (25 MCG) TAB ONE (10:00)
[2024-05-29] MEDS ORDERED: Heparin 10,000 UNITS/ 10 ML VIAL ONE (11:10)
[2024-05-30 09:26] LABS: Vancomycin, Trough 19.6 ug/mL
[2024-05-30] MEDS: Vancomycin HCl 500 MG in Sodium Chloride 0.9% 100 ML IVPB SCH (12:02)
[2024-05-31 05:49] LABS: #Basophils 0.05 10x3/uL (0.0-0.2); %Basophils 0.6 % (0.0-1.0); %Eosinophils 6.8 % (0.0-10.0); %Lymphocytes 22.9 % (21.0-51.0); %Monocytes 7.9 % (0.0-10.0); %Neutrophils 60.6 % (42.0-75.0); Hematocrit 22.8 % (36.0-47.0); Hemoglobin 7.1 g/dL (12.0-16.0); Mean Corpuscular HGB CONC 31.1 g/dL (32.0-36.0); Mean Corpuscular Hemoglobin 29.5 pg (27.0-31.0); Mean Corpuscular Volume 94.6 fL (78.0-98.0); Platelet Count 225 10x3/uL (130-400); RBC Distribution Width 14.9 % (11.5-14.5); Red Blood Cell (RBC) Count 2.41 mill/uL (4.20-5.40)
[2024-05-31 06:13] LABS: Anion Gap 11 mmol/L (10-20); BUN (Urea Nitrogen) 35 mg/dL (9.8-20.1); Calc. Creatinine Clearance 27 mL/min (70-130); Carbon Dioxide 26 mmol/L (23-31); Chloride 96 mmol/L (98-107); Estimated GFR 18; Glucose 118 mg/dL (80-115); Potassium 4.7 mmol/L (3.5-5.1); Sodium 128 mmol/L (136-145)
[2024-05-31 10:30] LABS: Vancomycin, Trough 23.7 ug/mL
[2024-06-01 07:16] LABS: Vancomycin, Trough 22.6 ug/mL
[2024-06-01] MEDS ORDERED: Sodium Bicarbonate 2.5 MEQ/5 ML SDV ONE (12:31)
[2024-06-01] MEDS ORDERED: Lidocaine 1% PF 5 ML VIAL ONE (12:31)
[2024-06-01] MEDS ORDERED: Iopamidol 100 ML FS ONE ×3 (12:31→15:40)
[2024-06-01] MEDS ORDERED: Midazolam HCl 2 mg/2 ml Vial ONE (13:16)
[2024-06-01] MEDS ORDERED: fentaNYL 50 mcg/mL 1 mL Vial ONE (13:16)
[2024-06-01] MEDS ORDERED: Heparin 1,000 UNITS/ML VIAL ONE (15:24)
[2024-06-02 06:23] LABS: #Basophils 0.05 10x3/uL (0.0-0.2); %Basophils 0.4 % (0.0-1.0); %Eosinophils 3.3 % (0.0-10.0); %Lymphocytes 16.2 % (21.0-51.0); %Monocytes 5.5 % (0.0-10.0); %Neutrophils 74.1 % (42.0-75.0); Hematocrit 22.9 % (36.0-47.0); Hemoglobin 7.3 g/dL (12.0-16.0); Mean Corpuscular HGB CONC 31.9 g/dL (32.0-36.0); Mean Corpuscular Hemoglobin 29.7 pg (27.0-31.0); Mean Corpuscular Volume 93.1 fL (78.0-98.0); Mean Platelet Volume 8.9 fL (7.4-10.4); Platelet Count 201 10x3/uL (130-400); RBC Distribution Width 15.8 % (11.5-14.5); Red Blood Cell (RBC) Count 2.46 mill/uL (4.20-5.40)
[2024-06-02 07:23] LABS: Vancomycin, Trough 20.5 ug/mL
[2024-06-02 07:50] LABS: Anion Gap 12 mmol/L (10-20); BUN (Urea Nitrogen) 53 mg/dL (9.8-20.1); Calc. Creatinine Clearance 22 mL/min (70-130); Calcium 8.4 mg/dL (7.8-10.44); Carbon Dioxide 25 mmol/L (23-31); Chloride 96 mmol/L (98-107); Estimated GFR 14; Glucose 93 mg/dL (80-115); Potassium 5.1 mmol/L (3.5-5.1); Sodium 128 mmol/L (136-145)
[2024-06-02] MEDS ORDERED: Heparin 10,000 UNITS/ 10 ML VIAL ONE (11:16)
[2024-06-02] MEDS: Vancomycin 250 MG, Admixture Fee 1 EACH in Sodium Chloride 0.9% 100 ML IVPB SCH (16:36)
[2024-06-03 07:56] LABS: Vancomycin, Trough 17.7 ug/mL
[2024-06-04 05:59] LABS: #Basophils 0.04 10x3/uL (0.0-0.2); %Basophils 0.4 % (0.0-1.0); %Eosinophils 3.2 % (0.0-10.0); %Lymphocytes 19.4 % (21.0-51.0); %Monocytes 6.4 % (0.0-10.0); %Neutrophils 70.1 % (42.0-75.0); Hematocrit 20.8 % (36.0-47.0); Hemoglobin 6.7 g/dL (12.0-16.0); Mean Corpuscular HGB CONC 32.2 g/dL (32.0-36.0); Mean Corpuscular Hemoglobin 29.5 pg (27.0-31.0); Mean Corpuscular Volume 91.6 fL (78.0-98.0); Mean Platelet Volume 9.3 fL (7.4-10.4); Platelet Count 191 10x3/uL (130-400); RBC Distribution Width 15.8 % (11.5-14.5); Red Blood Cell (RBC) Count 2.27 mill/uL (4.20-5.40)
[2024-06-04 06:26] LABS: Anion Gap 14 mmol/L (10-20); BUN (Urea Nitrogen) 41 mg/dL (9.8-20.1); Calc. Creatinine Clearance 29 mL/min (70-130); Calcium 8.4 mg/dL (7.8-10.44); Carbon Dioxide 25 mmol/L (23-31); Chloride 99 mmol/L (98-107); Estimated GFR 20; Glucose 87 mg/dL (80-115); Potassium 4.5 mmol/L (3.5-5.1); Sodium 133 mmol/L (136-145)
[2024-06-04 08:49] LABS: Vancomycin, Trough 16.9 ug/mL
[2024-06-04] MEDS ORDERED: Bupivacaine PF 0.5% 30 ML VIAL ONE (15:47)
[2024-06-04] MEDS ORDERED: EPINEPHrine 1 MG/ML VIAL ONE (15:47)
[2024-06-04] MEDS ORDERED: Lidocaine 2% PF 5 ML VIAL ONE (15:47)
[2024-06-04] MEDS ORDERED: PROPOFOL 20 ML ONE (16:44)
[2024-06-04] MEDS ORDERED: fentaNYL PF 100 MCG/2 ML SYRINGE ONE (16:44)
[2024-06-04] MEDS ORDERED: Midazolam HCl 2 mg/2 ml Vial ONE (17:05)
[2024-06-04] MEDS ORDERED: PHENYLEPHRINE-NS 100 MCG/ML 10 ML SYRINGE ONE (17:24)
[2024-06-04] MEDS ORDERED: Promethazine HCl 25 MG/ML VIAL IM PRN (17:27)
[2024-06-04] MEDS ORDERED: Ondansetron HCl/PF 4 MG/2 ML Vial IVP PRN (17:27)
[2024-06-04] MEDS: Vancomycin HCl 750 MG in Sodium Chloride 0.9% 250 ML 250 ML IVPB SCH (18:38)
[2024-06-04] MEDS: Ammonium Lactate 12% Lotion 225 GM BOT TOP SCH (20:18)
[2024-06-04] MEDS: Guaifenesin DM 100-10/5 ML UDCUP PO PRN (22:35)
[2024-06-06 06:00] LABS: #Basophils 0.04 10x3/uL (0.0-0.2); %Basophils 0.4 % (0.0-1.0); %Eosinophils 3.6 % (0.0-10.0); %Monocytes 7.9 % (0.0-10.0); %Neutrophils 70.6 % (42.0-75.0); Hematocrit 24.1 % (36.0-47.0); Hemoglobin 7.7 g/dL (12.0-16.0); Mean Corpuscular Hemoglobin 29.5 pg (27.0-31.0); Mean Corpuscular Volume 92.3 fL (78.0-98.0); Mean Platelet Volume 8.9 fL (7.4-10.4); Platelet Count 191 10x3/uL (130-400); RBC Distribution Width 16.1 % (11.5-14.5); Red Blood Cell (RBC) Count 2.61 mill/uL (4.20-5.40)
[2024-06-06 06:27] LABS: Anion Gap 10 mmol/L (10-20); BUN (Urea Nitrogen) 29 mg/dL (9.8-20.1); Calc. Creatinine Clearance 29 mL/min (70-130); Calcium 7.9 mg/dL (7.8-10.44); Carbon Dioxide 27 mmol/L (23-31); Chloride 100 mmol/L (98-107); Estimated GFR 19; Glucose 82 mg/dL (80-115); Sodium 133 mmol/L (136-145)
[2024-06-06 07:54] LABS: Vancomycin, Trough 18.3 ug/mL
[2024-06-06] MEDS ORDERED: Vancomycin HCl 500 MG in Sodium Chloride 0.9% 100 ML IV SCH (09:00)
[2024-06-06] MEDS ORDERED: Vancomycin Diaylsis Sliding Scale (Wt 71-99) FS SCH (09:30)
[2024-06-06] MEDS ORDERED: Heparin 10,000 UNITS/ 10 ML VIAL ONE (11:28)
[2024-06-06 15:34] LABS: Chloride 94 mmol/L (98-107); Potassium 4.5 mmol/L (3.5-5.1); Sodium 125 mmol/L (136-145)
[2024-06-06 15:35] LABS: Anion Gap 10 mmol/L (10-20); BUN (Urea Nitrogen) 46 mg/dL (9.8-20.1); Calc. Creatinine Clearance 20 mL/min (70-130); Carbon Dioxide 26 mmol/L (23-31); Estimated GFR 15; Glucose 141 mg/dL (80-115)
[2024-06-06 15:36] LABS: Calcium 8.2 mg/dL (7.6-10.4); Hematocrit 26.7 % (36.0-47.0); Hemoglobin 8.4 g/dL (12.0-16.0); Mean Corpuscular HGB CONC 31.5 g/dL (32.0-36.0); Mean Corpuscular Hemoglobin 29.1 pg (27.0-31.0); Mean Corpuscular Volume 92.4 fL (78.0-98.0); Mean Platelet Volume 9.2 fL (7.4-10.4); Platelet Count 240 10x3/uL (130-400); RBC Distribution Width 14.4 % (11.5-14.5); Red Blood Cell (RBC) Count 2.89 mill/uL (4.20-5.40)
[2024-06-06 15:37] LABS: %Basophils 0.4 % (0.0-1.0); %Eosinophils 4.9 % (0.0-10.0); %Monocytes 11.1 % (0.0-10.0); %Neutrophils 64.1 % (42.0-75.0); Manual Diff?? NO
[2024-06-06 15:38] LABS: #Basophils 0.04 10x3/uL (0.0-0.2)
[2024-06-06 15:39] LABS: Vancomycin, Trough 20.5 ug/mL
[2024-06-06 15:48] LABS: Hematocrit 27.8 % (36.0-47.0); Hemoglobin 8.6 g/dL (12.0-16.0); Platelet Count 242 10x3/uL (130-400)
[2024-06-06] MEDS: Vancomycin HCl 750 MG in Sodium Chloride 0.9% 250 ML 250 ML IVPB SCH (18:02)
[2024-06-08 06:04] LABS: #Basophils 0.05 10x3/uL (0.0-0.2); %Basophils 0.5 % (0.0-1.0); %Eosinophils 5.2 % (0.0-10.0); %Lymphocytes 22.6 % (21.0-51.0); %Monocytes 8.5 % (0.0-10.0); %Neutrophils 62.7 % (42.0-75.0); Hematocrit 24.4 % (36.0-47.0); Hemoglobin 7.6 g/dL (12.0-16.0); Mean Corpuscular HGB CONC 31.1 g/dL (32.0-36.0); Mean Corpuscular Hemoglobin 28.3 pg (27.0-31.0); Mean Corpuscular Volume 90.7 fL (78.0-98.0); Platelet Count 196 10x3/uL (130-400); RBC Distribution Width 15.2 % (11.5-14.5); Red Blood Cell (RBC) Count 2.69 mill/uL (4.20-5.40)
[2024-06-08 06:22] LABS: Anion Gap 9 mmol/L (10-20); BUN (Urea Nitrogen) 33 mg/dL (9.8-20.1); Calc. Creatinine Clearance 36 mL/min (70-130); Calcium 8.2 mg/dL (7.8-10.44); Carbon Dioxide 27 mmol/L (23-31); Chloride 100 mmol/L (98-107); Estimated GFR 25; Glucose 86 mg/dL (80-115); Potassium 3.9 mmol/L (3.5-5.1); Sodium 132 mmol/L (136-145)
[2024-06-09 07:28] LABS: Vancomycin, Trough 15.8 ug/mL
[2024-06-09] MEDS: Vancomycin HCl 500 MG in Sodium Chloride 0.9% 100 ML IV SCH (09:24)
[2024-06-09] MEDS: DAPTOmycin 700 MG in Sodium Chloride 0.9% 50 ML IVPB SCH (18:09)
[2024-06-10 05:04] LABS: #Basophils 0.04 10x3/uL (0.0-0.2); %Basophils 0.5 % (0.0-1.0); %Eosinophils 6.3 % (0.0-10.0); %Lymphocytes 19.5 % (21.0-51.0); %Monocytes 7.6 % (0.0-10.0); %Neutrophils 65.8 % (42.0-75.0); Hematocrit 23.3 % (36.0-47.0); Hemoglobin 7.3 g/dL (12.0-16.0); Mean Corpuscular HGB CONC 31.3 g/dL (32.0-36.0); Mean Corpuscular Hemoglobin 28.7 pg (27.0-31.0); Mean Corpuscular Volume 91.7 fL (78.0-98.0); Mean Platelet Volume 9.4 fL (7.4-10.4); Platelet Count 182 10x3/uL (130-400); RBC Distribution Width 14.8 % (11.5-14.5); Red Blood Cell (RBC) Count 2.54 mill/uL (4.20-5.40)
[2024-06-10 05:10] LABS: Anion Gap 13 mmol/L (10-20); BUN (Urea Nitrogen) 51 mg/dL (9.8-20.1); CK (CPK) 11 U/L (29-168); Calc. Creatinine Clearance 28 mL/min (70-130); Carbon Dioxide 22 mmol/L (23-31); Chloride 98 mmol/L (98-107); Estimated GFR 19; Glucose 116 mg/dL (80-115); Potassium 4.7 mmol/L (3.5-5.1); Sodium 128 mmol/L (136-145)
[2024-06-10] MEDS ORDERED: Iopamidol-370 76% 500 ML MDV (1 ML CHARGE) ONE (14:55)
[2024-06-11 09:12] LABS: #Basophils 0.04 10x3/uL (0.0-0.2); %Basophils 0.7 % (0.0-1.0); %Eosinophils 9.7 % (0.0-10.0); %Lymphocytes 22.1 % (21.0-51.0); %Monocytes 10.5 % (0.0-10.0); %Neutrophils 56.7 % (42.0-75.0); Hematocrit 25.2 % (36.0-47.0); Hemoglobin 8.1 g/dL (12.0-16.0); Mean Corpuscular HGB CONC 32.1 g/dL (32.0-36.0); Mean Corpuscular Hemoglobin 29.5 pg (27.0-31.0); Mean Corpuscular Volume 91.6 fL (78.0-98.0); Platelet Count 229 10x3/uL (130-400); RBC Distribution Width 14.9 % (11.5-14.5); Red Blood Cell (RBC) Count 2.75 mill/uL (4.20-5.40)
[2024-06-11 09:24] LABS: Anion Gap 13 mmol/L (10-20); BUN (Urea Nitrogen) 56 mg/dL (9.8-20.1); Calc. Creatinine Clearance 24 mL/min (70-130); Calcium 8.2 mg/dL (7.8-10.44); Carbon Dioxide 22 mmol/L (23-31); Chloride 98 mmol/L (98-107); Estimated GFR 16; Glucose 69 mg/dL (80-115); Potassium 4.6 mmol/L (3.5-5.1); Sodium 128 mmol/L (136-145)
[2024-06-11] MEDS: Polyethylene Glycol 3350 17 GM Packet PO PRN (15:37)
[2024-06-11 19:59] LABS: HBSAB Concentration Less than 8.00 mIU/mL; HBsAg Index 0.39 S/CO (0-0.99); Hep B Core Total Ab NONREACTIVE (NonReactive); Hep B Core Total Index 0.23 S/CO (0-0.79); Hep B Surf AB NONREACTIVE (NonReactive); Hep B Surf Ag NONREACTIVE S/CO (NonReactive); Hep C IgG Ab NONREACTIVE S/CO (NonReactive); Hep C Index 0.15 S/CO (0-0.79)
[2024-06-12 06:31] LABS: Hemoglobin 7.4 g/dL (12.0-16.0); Mean Corpuscular HGB CONC 32.2 g/dL (32.0-36.0); Mean Corpuscular Hemoglobin 29.1 pg (27.0-31.0); Mean Corpuscular Volume 90.6 fL (78.0-98.0); Mean Platelet Volume 9.1 fL (7.4-10.4); Platelet Count 242 10x3/uL (130-400); RBC Distribution Width 14.9 % (11.5-14.5); Red Blood Cell (RBC) Count 2.54 mill/uL (4.20-5.40)
[2024-06-12 06:48] LABS: Anion Gap 12 mmol/L (10-20); BUN (Urea Nitrogen) 60 mg/dL (9.8-20.1); Calc. Creatinine Clearance 24 mL/min (70-130); Calcium 8.3 mg/dL (7.8-10.44); Carbon Dioxide 23 mmol/L (23-31); Chloride 97 mmol/L (98-107); Estimated GFR 15; Glucose 79 mg/dL (80-115); Potassium 4.9 mmol/L (3.5-5.1); Sodium 127 mmol/L (136-145)
[2024-06-12] MEDS: Saccharomyces boulardii 250 MG CAP PO SCH (10:52)
[2024-06-12] MEDS: Benzonatate 100 MG CAP PO SCH (10:53)
[2024-06-12] MEDS ORDERED: fentaNYL 50 mcg/mL 1 mL Vial ONE (15:29)
[2024-06-12] MEDS ORDERED: Sodium Bicarbonate 2.5 MEQ/5 ML SDV ONE (15:29)
[2024-06-13 06:02] LABS: Hematocrit 22.7 % (36.0-47.0); Hemoglobin 7.3 g/dL (12.0-16.0); Mean Corpuscular HGB CONC 32.2 g/dL (32.0-36.0); Mean Corpuscular Hemoglobin 29.2 pg (27.0-31.0); Mean Corpuscular Volume 90.8 fL (78.0-98.0); Mean Platelet Volume 8.9 fL (7.4-10.4); Platelet Count 239 10x3/uL (130-400); RBC Distribution Width 14.9 % (11.5-14.5)
[2024-06-13 06:17] LABS: Anion Gap 12 mmol/L (10-20); BUN (Urea Nitrogen) 64 mg/dL (9.8-20.1); Calc. Creatinine Clearance 22 mL/min (70-130); Calcium 8.6 mg/dL (7.8-10.44); Carbon Dioxide 24 mmol/L (23-31); Chloride 98 mmol/L (98-107); Estimated GFR 14; Glucose 89 mg/dL (80-115); Potassium 5.6 mmol/L (3.5-5.1); Sodium 128 mmol/L (136-145)
[2024-06-13] MEDS: Docusate 100 MG CAP PO PRN (08:52)
[2024-06-13] MEDS: CALCIUM GLUC 1 GM/NS 50 ML 1 GM in Premix 1 BAG IVPB SCH (09:05)
[2024-06-13] MEDS: LOKELMA 5 GM PACKET PO SCH (09:06)
[2024-06-13] MEDS: Albuterol 2.5 MG (3 mL) NEB NEB SCH (09:06)
[2024-06-13] MEDS: Albuterol 2.5 MG (3 mL) NEB ONE (14:29)
[2024-06-14 05:59] LABS: Hematocrit 23.2 % (36.0-47.0); Hemoglobin 7.5 g/dL (12.0-16.0); Mean Corpuscular HGB CONC 32.3 g/dL (32.0-36.0); Mean Corpuscular Hemoglobin 29.3 pg (27.0-31.0); Mean Corpuscular Volume 90.6 fL (78.0-98.0); Platelet Count 269 10x3/uL (130-400); RBC Distribution Width 15.5 % (11.5-14.5); Red Blood Cell (RBC) Count 2.56 mill/uL (4.20-5.40)
[2024-06-14 06:13] LABS: Anion Gap 14 mmol/L (10-20); BUN (Urea Nitrogen) 65 mg/dL (9.8-20.1); Calc. Creatinine Clearance 20 mL/min (70-130); Calcium 8.9 mg/dL (7.8-10.44); Carbon Dioxide 24 mmol/L (23-31); Chloride 96 mmol/L (98-107); Estimated GFR 13; Glucose 72 mg/dL (80-115); Potassium 5.8 mmol/L (3.5-5.1); Sodium 128 mmol/L (136-145)
[2024-06-14] MEDS: Micafungin 100 MG in Sodium Chloride 0.9% 100 ML IVPB SCH (11:30)
[2024-06-14] MEDS: LOKELMA 10 GM PACKET PO SCH (11:55)
[2024-06-15 21:14] LABS: Anion Gap 14 mmol/L (10-20); BUN (Urea Nitrogen) 68 mg/dL (9.8-20.1); Calc. Creatinine Clearance 17 mL/min (70-130); Calcium 9.3 mg/dL (7.8-10.44); Carbon Dioxide 23 mmol/L (23-31); Chloride 97 mmol/L (98-107); Estimated GFR 10; Glucose 69 mg/dL (80-115); Potassium 5.5 mmol/L (3.5-5.1); Sodium 128 mmol/L (136-145)
[2024-06-16 08:25] LABS: #Basophils 0.04 10x3/uL (0.0-0.2); %Basophils 0.6 % (0.0-1.0); %Eosinophils 2.8 % (0.0-10.0); %Lymphocytes 23.9 % (21.0-51.0); %Monocytes 10.7 % (0.0-10.0); %Neutrophils 61.1 % (42.0-75.0); Hematocrit 26.4 % (36.0-47.0); Hemoglobin 8.4 g/dL (12.0-16.0); Mean Corpuscular HGB CONC 31.8 g/dL (32.0-36.0); Mean Corpuscular Hemoglobin 28.5 pg (27.0-31.0); Mean Corpuscular Volume 89.5 fL (78.0-98.0); Mean Platelet Volume 9.1 fL (7.4-10.4); Platelet Count 263 10x3/uL (130-400); RBC Distribution Width 15.9 % (11.5-14.5); Red Blood Cell (RBC) Count 2.95 mill/uL (4.20-5.40)
[2024-06-16 08:49] LABS: Anion Gap 14 mmol/L (10-20); BUN (Urea Nitrogen) 70 mg/dL (9.8-20.1); Calc. Creatinine Clearance 18 mL/min (70-130); Calcium 8.8 mg/dL (7.8-10.44); Carbon Dioxide 22 mmol/L (23-31); Chloride 97 mmol/L (98-107); Estimated GFR 11; Glucose 64 mg/dL (80-115); Potassium 5.6 mmol/L (3.5-5.1); Sodium 127 mmol/L (136-145)
[2024-06-16 09:27] LABS: Magnesium 2.7 mg/dL (1.6-2.6); Phosphorus 4.1 mg/dL (2.3-4.7)
[2024-06-16 11:28] LABS: Reference Lab Name LABCORP
[2024-06-16] MEDS: EPOETIN ALFA-EPBX (ESRD) 10,000 UNITS/ML VIAL SC SCH (11:52)
[2024-06-16 14:26] LABS: Thyroid Stimulating Hormone 9.6898 uIU/mL (0.35-4.94)
[2024-06-16 15:19] LABS: Free T4 (Free Thyroxine) 0.59 ng/dL (0.70-1.48)
[2024-06-16] MEDS ORDERED: Heparin 10,000 UNITS/ 10 ML VIAL ONE (17:56)
[2024-06-16] MEDS ORDERED: EPINEPHrine 1 MG/ML VIAL ONE (17:57)
[2024-06-16] MEDS ORDERED: Bupivacaine 0.25% HCL 30 ML VIAL ONE (17:57)
[2024-06-16] MEDS ORDERED: Lidocaine 1% PF 5 ML VIAL ONE (18:08)
[2024-06-16] MEDS ORDERED: PROPOFOL 20 ML ONE (18:08)
[2024-06-16] MEDS ORDERED: PHENYLEPHRINE-NS 100 MCG/ML 10 ML SYRINGE ONE (18:13)
[2024-06-16] MEDS ORDERED: fentaNYL 50 mcg/mL 1 mL Vial ONE (18:13)
[2024-06-16] MEDS ORDERED: CEFAZOLIN 1 GM VIAL ONE (18:51)
[2024-06-16] MEDS ORDERED: Glycopyrrolate 0.2 MG/ML 5 ML SYRINGE ONE (19:15)
[2024-06-16] MEDS ORDERED: Ondansetron HCl/PF 4 MG/2 ML Vial IVP PRN (19:52)
[2024-06-16] MEDS ORDERED: Promethazine HCl 25 MG/ML VIAL IM PRN (19:52)
[2024-06-17] MEDS: Dextrose 50% Abboject 50 ML SYRINGE SLOW IVP PRN (02:52)
[2024-06-17 06:21] LABS: Hematocrit 27.3 % (36.0-47.0); Hemoglobin 8.7 g/dL (12.0-16.0); Mean Corpuscular HGB CONC 31.9 g/dL (32.0-36.0); Mean Platelet Volume 9.1 fL (7.4-10.4); Platelet Count 302 10x3/uL (130-400); RBC Distribution Width 16.1 % (11.5-14.5)
[2024-06-17 07:01] LABS: Anion Gap 14 mmol/L (10-20); BUN (Urea Nitrogen) 73 mg/dL (9.8-20.1); Calc. Creatinine Clearance 17 mL/min (70-130); Calcium 9.1 mg/dL (7.8-10.44); Carbon Dioxide 21 mmol/L (23-31); Chloride 99 mmol/L (98-107); Estimated GFR 11; Glucose 78 mg/dL (80-115); Potassium 5.6 mmol/L (3.5-5.1); Sodium 128 mmol/L (136-145)
[2024-06-17] MEDS: Albumin 25% 25 GM (100 mL) BOT IVPB SCH (08:16)
[2024-06-17] MEDS ORDERED: Albumin 25% 25 GM (100 mL) BOT IVPB PRN (10:47)
[2024-06-17] MEDS: diphenhydrAMINE 25 MG CAP PER TUBE PRN (20:27)
[2024-06-18] MEDS: Levothyroxine Sodium 50 MCG TAB PO SCH (05:21)
[2024-06-18 05:53] LABS: #Basophils 0.05 10x3/uL (0.0-0.2); %Basophils 0.6 % (0.0-1.0); %Eosinophils 2.3 % (0.0-10.0); %Lymphocytes 9.9 % (21.0-51.0); %Monocytes 7.5 % (0.0-10.0); %Neutrophils 79.1 % (42.0-75.0); Hematocrit 21.7 % (36.0-47.0); Hemoglobin 6.9 g/dL (12.0-16.0); Mean Corpuscular HGB CONC 31.8 g/dL (32.0-36.0); Mean Corpuscular Volume 91.2 fL (78.0-98.0); Mean Platelet Volume 9.1 fL (7.4-10.4); Platelet Count 227 10x3/uL (130-400); RBC Distribution Width 16.5 % (11.5-14.5); Red Blood Cell (RBC) Count 2.38 mill/uL (4.20-5.40)
[2024-06-18 06:07] LABS: Anion Gap 12 mmol/L (10-20); BUN (Urea Nitrogen) 40 mg/dL (9.8-20.1); CK (CPK) 28 U/L (29-168); Calc. Creatinine Clearance 26 mL/min (70-130); Calcium 8.5 mg/dL (7.8-10.44); Carbon Dioxide 25 mmol/L (23-31); Chloride 102 mmol/L (98-107); Estimated GFR 17; Glucose 64 mg/dL (80-115); Sodium 135 mmol/L (136-145)
[2024-06-18] MEDS ORDERED: Heparin 10,000 UNITS/ 10 ML VIAL ONE (09:57)
[2024-06-20] MEDS ORDERED: Heparin 10,000 UNITS/ 10 ML VIAL ONE (10:02)
[2024-06-21 04:53] LABS: Actual Bicarbonate (HCO3a) 26.8 mEq/L (22-28); Base Excess (BEa) 1.8 mEq/L (-2.0 to +3.0); CO2 Tension 44.1 mmHg (35.0-45.0); Calcium, Ionized (arterial) 1.24 mmol/L (1.12-1.30); Carboxyhemoglobin (COHb) 1.3 gm% (0.0-3.0); Hematocrit-ABG 29 % (36.0-47.0); Hemoglobin (Hb) 9.7 g/dL (12.0-16.0); Potassium - ABG Lab 3.63 mmol/L (3.70-5.30); pH, Arterial 7.402 (7.35-7.45)
[2024-06-21 04:54] LABS: O2 Tension (PaO2), arterial 44.7 mmHg (> 80.0)
[2024-06-21 04:55] LABS: ALV-art Gradient 99.815 mmHg (0-20); Puncture Site Left Radial artery
[2024-06-21] MEDS: Hydrocortisone Sod Succ/PF 100 mg/2 ml Vial ONE (05:05)
[2024-06-21] MEDS: Racepinephrine 2.25% 0.5 ML NEB ONE ×2 (05:30→06:03)
[2024-06-21] MEDS: Hydrocortisone Sod Succ/PF 100 mg/2 ml Vial IVP SCH (07:41)
[2024-06-22] MEDS ORDERED: Heparin 10,000 UNITS/ 10 ML VIAL ONE (10:24)
[2024-06-22 11:11] LABS: #Basophils Less than 0.03 10x3/uL (0.0-0.2); #Eosinophils Less than 0.03 10x3/uL (0.0-0.7); %Basophils 0.1 % (0.0-1.0); %Lymphocytes 8.5 % (21.0-51.0); %Monocytes 6.5 % (0.0-10.0); %Neutrophils 84.1 % (42.0-75.0); Hematocrit 28.8 % (36.0-47.0); Hemoglobin 8.8 g/dL (12.0-16.0); Mean Corpuscular HGB CONC 30.6 g/dL (32.0-36.0); Mean Corpuscular Hemoglobin 28.5 pg (27.0-31.0); Mean Corpuscular Volume 93.2 fL (78.0-98.0); Platelet Count 143 10x3/uL (130-400); RBC Distribution Width 16.3 % (11.5-14.5); Red Blood Cell (RBC) Count 3.09 mill/uL (4.20-5.40)
[2024-06-22 11:25] LABS: Anion Gap 9 mmol/L (10-20); BUN (Urea Nitrogen) 23 mg/dL (9.8-20.1); Calc. Creatinine Clearance 32 mL/min (70-130); Calcium 8.5 mg/dL (7.8-10.44); Carbon Dioxide 29 mmol/L (23-31); Chloride 103 mmol/L (98-107); Estimated GFR 24; Glucose 204 mg/dL (80-115); Potassium 3.9 mmol/L (3.5-5.1); Sodium 137 mmol/L (136-145)
[2024-06-23 06:00] LABS: #Basophils Less than 0.03 10x3/uL (0.0-0.2); %Eosinophils 0.5 % (0.0-10.0); %Lymphocytes 6.5 % (21.0-51.0); %Monocytes 6.1 % (0.0-10.0); %Neutrophils 86.4 % (42.0-75.0); Hematocrit 25.9 % (36.0-47.0); Mean Corpuscular HGB CONC 30.9 g/dL (32.0-36.0); Mean Corpuscular Hemoglobin 27.7 pg (27.0-31.0); Mean Corpuscular Volume 89.6 fL (78.0-98.0); Mean Platelet Volume 9.7 fL (7.4-10.4); Platelet Count 120 10x3/uL (130-400); RBC Distribution Width 16.3 % (11.5-14.5); Red Blood Cell (RBC) Count 2.89 mill/uL (4.20-5.40)
[2024-06-23] MEDS ORDERED: EPINEPHrine 1 MG/ML VIAL ONE ×2 (06:44→14:24)
[2024-06-23] MEDS ORDERED: Bupivacaine PF 0.5% 30 ML VIAL ONE ×2 (06:44→14:24)
[2024-06-23] MEDS ORDERED: Lidocaine 2% PF 5 ML VIAL ONE ×2 (06:44→14:24)
[2024-06-23] MEDS ORDERED: Heparin 10,000 UNITS/ 10 ML VIAL ONE ×2 (06:44→14:24)
[2024-06-23] MEDS: Ipratropium/Albuterol 3 ML NEB NEB SCH (10:20)
[2024-06-23] MEDS ORDERED: ePHEDrine Sulfate 50 MG/10 ML VIAL ONE (15:24)
[2024-06-25 06:09] LABS: #Basophils Less than 0.03 10x3/uL (0.0-0.2); %Basophils 0.1 % (0.0-1.0); %Eosinophils 0.4 % (0.0-10.0); %Lymphocytes 5.9 % (21.0-51.0); %Monocytes 3.8 % (0.0-10.0); %Neutrophils 88.8 % (42.0-75.0); Hematocrit 26.2 % (36.0-47.0); Mean Corpuscular HGB CONC 30.5 g/dL (32.0-36.0); Mean Corpuscular Hemoglobin 28.4 pg (27.0-31.0); Mean Corpuscular Volume 92.9 fL (78.0-98.0); Mean Platelet Volume 10.5 fL (7.4-10.4); Platelet Count 110 10x3/uL (130-400); RBC Distribution Width 16.3 % (11.5-14.5); Red Blood Cell (RBC) Count 2.82 mill/uL (4.20-5.40)
[2024-06-25 06:16] LABS: ALT (SGPT) 16 U/L (8-55); AST (SGOT) 22 U/L (5-34); Albumin 1.8 g/dL (3.4-4.8); Alkaline Phosphatase 134 U/L (40-110); Anion Gap 7 mmol/L (10-20); BUN (Urea Nitrogen) 27 mg/dL (9.8-20.1); Bilirubin, Total 0.4 mg/dL (0.2-1.2); Calc. Creatinine Clearance 31 mL/min (70-130); Calcium 8.1 mg/dL (7.8-10.44); Carbon Dioxide 30 mmol/L (23-31); Chloride 100 mmol/L (98-107); Estimated GFR 23; Globulin 3.3 g/dL (2.4-3.5); Glucose 205 mg/dL (80-115); Potassium 3.8 mmol/L (3.5-5.1); Protein, Total 5.1 g/dL (5.8-8.1); Sodium 133 mmol/L (136-145)
[2024-06-25] MEDS: Albumin 25% 25 GM (100 mL) BOT IVPB SCH (09:31)
[2024-06-25] MEDS ORDERED: Heparin 10,000 UNITS/ 10 ML VIAL ONE (10:33)
[2024-06-26 06:35] LABS: #Basophils 0.03 10x3/uL (0.0-0.2); %Basophils 0.2 % (0.0-1.0); %Eosinophils 0.8 % (0.0-10.0); %Lymphocytes 6.6 % (21.0-51.0); %Monocytes 4.6 % (0.0-10.0); %Neutrophils 86.6 % (42.0-75.0); Hematocrit 23.8 % (36.0-47.0); Hemoglobin 7.2 g/dL (12.0-16.0); Mean Corpuscular HGB CONC 30.3 g/dL (32.0-36.0); Mean Corpuscular Hemoglobin 28.3 pg (27.0-31.0); Mean Corpuscular Volume 93.7 fL (78.0-98.0); Mean Platelet Volume 10.1 fL (7.4-10.4); Platelet Count 100 10x3/uL (130-400); RBC Distribution Width 16.4 % (11.5-14.5); Red Blood Cell (RBC) Count 2.54 mill/uL (4.20-5.40)
[2024-06-26 06:47] LABS: ALT (SGPT) 15 U/L (8-55); AST (SGOT) 20 U/L (5-34); Albumin 2.5 g/dL (3.4-4.8); Alkaline Phosphatase 104 U/L (40-110); Anion Gap 10 mmol/L (10-20); BUN (Urea Nitrogen) 16 mg/dL (9.8-20.1); Bilirubin, Total 0.7 mg/dL (0.2-1.2); Calc. Creatinine Clearance 41 mL/min (70-130); Calcium 8.1 mg/dL (7.8-10.44); Carbon Dioxide 28 mmol/L (23-31); Chloride 100 mmol/L (98-107); Estimated GFR 35; Glucose 97 mg/dL (80-115); Potassium 3.6 mmol/L (3.5-5.1); Protein, Total 5.5 g/dL (5.8-8.1); Sodium 134 mmol/L (136-145)
[2024-06-27 06:54] LABS: #Basophils Less than 0.03 10x3/uL (0.0-0.2); %Basophils 0.1 % (0.0-1.0); %Eosinophils 0.7 % (0.0-10.0); %Lymphocytes 7.5 % (21.0-51.0); %Monocytes 4.4 % (0.0-10.0); %Neutrophils 86.4 % (42.0-75.0); Hematocrit 24.5 % (36.0-47.0); Hemoglobin 7.5 g/dL (12.0-16.0); Mean Corpuscular HGB CONC 30.6 g/dL (32.0-36.0); Mean Corpuscular Hemoglobin 28.3 pg (27.0-31.0); Mean Corpuscular Volume 92.5 fL (78.0-98.0); Mean Platelet Volume 10.2 fL (7.4-10.4); Platelet Count 130 10x3/uL (130-400); RBC Distribution Width 16.5 % (11.5-14.5); Red Blood Cell (RBC) Count 2.65 mill/uL (4.20-5.40)
[2024-06-27 07:02] LABS: ALT (SGPT) 15 U/L (8-55); AST (SGOT) 20 U/L (5-34); Albumin 2.2 g/dL (3.4-4.8); Alkaline Phosphatase 115 U/L (40-110); Anion Gap 10 mmol/L (10-20); BUN (Urea Nitrogen) 24 mg/dL (9.8-20.1); Bilirubin, Total 0.8 mg/dL (0.2-1.2); Calc. Creatinine Clearance 32 mL/min (70-130); Calcium 8.4 mg/dL (7.8-10.44); Carbon Dioxide 28 mmol/L (23-31); Chloride 103 mmol/L (98-107); Estimated GFR 26; Globulin 3.3 g/dL (2.4-3.5); Glucose 91 mg/dL (80-115); Potassium 3.8 mmol/L (3.5-5.1); Protein, Total 5.5 g/dL (5.8-8.1); Sodium 137 mmol/L (136-145)
[2024-06-27 09:21] LABS: INR-International Normal Ratio 1.2; Prothrombin Time 15.3 sec (12.0-14.7)
[2024-06-27 09:22] LABS: PTT 51.6 sec (22.9-36.1)
[2024-06-27 09:24] LABS: D-Dimer Test 3.62 mcg/mL (0.27-0.43)
[2024-06-27] MEDS ORDERED: Heparin 10,000 UNITS/ 10 ML VIAL ONE (10:43)
[2024-06-28 06:32] LABS: #Basophils Less than 0.03 10x3/uL (0.0-0.2); %Basophils 0.1 % (0.0-1.0); %Eosinophils 0.3 % (0.0-10.0); %Lymphocytes 3.3 % (21.0-51.0); %Monocytes 4.2 % (0.0-10.0); %Neutrophils 91.2 % (42.0-75.0); Hematocrit 24.6 % (36.0-47.0); Hemoglobin 7.5 g/dL (12.0-16.0); Mean Corpuscular HGB CONC 30.5 g/dL (32.0-36.0); Mean Corpuscular Hemoglobin 28.4 pg (27.0-31.0); Mean Corpuscular Volume 93.2 fL (78.0-98.0); Mean Platelet Volume 10.2 fL (7.4-10.4); Platelet Count 130 10x3/uL (130-400); RBC Distribution Width 16.9 % (11.5-14.5); Red Blood Cell (RBC) Count 2.64 mill/uL (4.20-5.40)
[2024-06-28 06:51] LABS: ALT (SGPT) 14 U/L (8-55); AST (SGOT) 15 U/L (5-34); Alkaline Phosphatase 141 U/L (40-110); Anion Gap 10 mmol/L (10-20); BUN (Urea Nitrogen) 16 mg/dL (9.8-20.1); Bilirubin, Total 0.7 mg/dL (0.2-1.2); Calc. Creatinine Clearance 45 mL/min (70-130); Calcium 8.2 mg/dL (7.8-10.44); Carbon Dioxide 28 mmol/L (23-31); Chloride 103 mmol/L (98-107); Estimated GFR 40; Globulin 3.4 g/dL (2.4-3.5); Glucose 169 mg/dL (80-115); Potassium 3.6 mmol/L (3.5-5.1); Protein, Total 5.4 g/dL (5.8-8.1); Sodium 137 mmol/L (136-145)
[2024-06-28 11:00] LABS: Actual Bicarbonate (HCO3a) 29.7 mEq/L (22-28); Base Excess (BEa) 3.2 mEq/L (-2.0 to +3.0); CO2 Tension 56.3 mmHg (35.0-45.0); Calcium, Ionized (arterial) 1.23 mmol/L (1.12-1.30); Carboxyhemoglobin (COHb) 0.8 gm% (0.0-3.0); Hematocrit-ABG 25 % (36.0-47.0); Hemoglobin (Hb) 8.6 g/dL (12.0-16.0); Potassium - ABG Lab 3.59 mmol/L (3.70-5.30)
[2024-06-28 11:01] LABS: O2 Tension (PaO2), arterial 40.9 mmHg (> 80.0)
[2024-06-28 11:02] LABS: ALV-art Gradient 601.725 mmHg (0-20); Puncture Site Left Radial artery
[2024-06-28] MEDS: Dexmedetomidine In 0.9 % NaCl 100 ML IV SCH (13:32)
[2024-06-28 14:15] LABS: Actual Bicarbonate (HCO3a) 31.2 mEq/L (22-28); Base Excess (BEa) 5.9 mEq/L (-2.0 to +3.0); CO2 Tension 49.7 mmHg (35.0-45.0); Carboxyhemoglobin (COHb) 1.1 gm% (0.0-3.0); Hematocrit-ABG 25 % (36.0-47.0); Hemoglobin (Hb) 8.5 g/dL (12.0-16.0); Potassium - ABG Lab 3.42 mmol/L (3.70-5.30); pH, Arterial 7.416 (7.35-7.45)
[2024-06-28 14:16] LABS: O2 Tension (PaO2), arterial 50.3 mmHg (> 80.0)
[2024-06-28 14:17] LABS: ALV-art Gradient 315.375 mmHg (0-20); Puncture Site Left Radial artery
[2024-06-29 06:44] LABS: #Basophils Less than 0.03 10x3/uL (0.0-0.2); %Eosinophils 0.4 % (0.0-10.0); %Lymphocytes 9.5 % (21.0-51.0); %Monocytes 3.9 % (0.0-10.0); %Neutrophils 85.8 % (42.0-75.0); Anisocytosis MODERATE=16-30 cells HPF (0-5); Burr Cells SLIGHT = 2-5 cells HPF (0-1); Hematocrit 19.8 % (36.0-47.0); Hemoglobin 6.1 g/dL (12.0-16.0); Hypochromia MODERATE=16-30 cells HPF (0-5); Macrocytosis SLIGHT = 6-15 cells HPF (0-5); Mean Corpuscular HGB CONC 31.6 g/dL (32.0-36.0); Mean Corpuscular Hemoglobin 28.6 pg (27.0-31.0); Mean Corpuscular Volume 90.3 fL (78.0-98.0); Mean Platelet Volume 11.3 fL (7.4-10.4); Platelet Adequacy Comment Platelets Decreased; Platelet Count 107 10x3/uL (130-400); Polychromasia SLIGHT = 2-3 cells HPF (0-2); RBC Distribution Width 16.7 % (11.5-14.5); Red Blood Cell (RBC) Count 2.17 mill/uL (4.20-5.40)
[2024-06-29] MEDS: Racepinephrine 2.25% 0.5 ML NEB NEB PRN (08:31)
[2024-06-29] MEDS: Ipratropium/Albuterol 3 ML NEB NEB PRN (08:31)
[2024-06-29 08:36] LABS: Actual Bicarbonate (HCO3a) 28.7 mEq/L (22-28); Base Excess (BEa) 4.4 mEq/L (-2.0 to +3.0); Calcium, Ionized (arterial) 1.22 mmol/L (1.12-1.30); Carboxyhemoglobin (COHb) 1.9 gm% (0.0-3.0); Hematocrit-ABG 22 % (36.0-47.0); Hemoglobin (Hb) 7.5 g/dL (12.0-16.0); Potassium - ABG Lab 3.74 mmol/L (3.70-5.30); pH, Arterial 7.453 (7.35-7.45)
[2024-06-29 08:38] LABS: O2 Tension (PaO2), arterial 44.7 mmHg (> 80.0); Puncture Site Left Radial artery
[2024-06-29] MEDS ORDERED: Heparin 10,000 UNITS/ 10 ML VIAL ONE (11:03)
[2024-06-29] MEDS: Albumin 25% 25 GM (100 mL) BOT IVPB SCH (13:00)
[2024-06-29] MEDS: Albumin 25% 200 ML ONE (13:00)
[2024-06-29] MEDS: Lorazepam 2 MG/ML VIAL SLOW IVP SCH (22:48)
[2024-06-30] MEDS: Lorazepam 2 MG/ML VIAL SLOW IVP SCH (01:45)
[2024-06-30 01:52] LABS: Actual Bicarbonate (HCO3a) 29.5 mEq/L (22-28); Base Excess (BEa) 3.7 mEq/L (-2.0 to +3.0); CO2 Tension 52.2 mmHg (35.0-45.0); Calcium, Ionized (arterial) 1.27 mmol/L (1.12-1.30); Hematocrit-ABG 21 % (36.0-47.0); Hemoglobin (Hb) 7.1 g/dL (12.0-16.0); O2 Tension (PaO2), arterial 74.2 mmHg (> 80.0); Potassium - ABG Lab 3.72 mmol/L (3.70-5.30)
[2024-06-30 01:53] LABS: Puncture Site Left Brachial artery
[2024-06-30] MEDS: Lorazepam 2 MG/ML VIAL ONE (01:59)
[2024-06-30] MEDS: Morphine 2 MG/ML VIAL SLOW IVP SCH (02:12)
[2024-06-30] MEDS: Ipratropium/Albuterol 3 ML NEB NEB PRN (03:00)
[2024-06-30] MEDS: Lactated Ringer's 250 ML IVPB SCH (03:15)
[2024-06-30] MEDS: EPINEPHrine 1 MG/10 ML Abboject SYRINGE ONE (03:26)
[2024-06-30] MEDS: EPINEPHrine 1 MG/10 ML Abboject SYRINGE IVP SCH (03:26)
[2024-06-30 03:41] LABS: #Basophils Less than 0.03 10x3/uL (0.0-0.2); %Basophils 0.1 % (0.0-1.0); %Eosinophils 1.1 % (0.0-10.0); %Monocytes 4.7 % (0.0-10.0); %Neutrophils 82.3 % (42.0-75.0); Hematocrit 19.8 % (36.0-47.0); Hemoglobin 6.1 g/dL (12.0-16.0); Mean Corpuscular HGB CONC 30.8 g/dL (32.0-36.0); Mean Corpuscular Volume 90.8 fL (78.0-98.0); Platelet Count 120 10x3/uL (130-400); RBC Distribution Width 16.5 % (11.5-14.5); Red Blood Cell (RBC) Count 2.18 mill/uL (4.20-5.40)
[2024-06-30] MEDS: NOREPINEPHRINE 8 MG/250 ML-D5W 250 ML ONE (03:50)
[2024-06-30] MEDS: NOREPINEPHRINE 8 MG/250 ML-D5W 250 ML IVPB SCH (03:50)
[2024-06-30] MEDS ORDERED: NOREPINEPHRINE 8 MG/250 ML-D5W 250 ML IVPB SCH (04:30)
[2024-06-30 04:37] LABS: ALT (SGPT) 11 U/L (8-55); AST (SGOT) 15 U/L (5-34); Albumin 2.2 g/dL (3.4-4.8); Alkaline Phosphatase 89 U/L (40-110); Anion Gap 10 mmol/L (10-20); BUN (Urea Nitrogen) 28 mg/dL (9.8-20.1); Bilirubin, Total 0.7 mg/dL (0.2-1.2); Calc. Creatinine Clearance 26 mL/min (70-130); Calcium 8.6 mg/dL (7.8-10.44); Carbon Dioxide 28 mmol/L (23-31); Chloride 103 mmol/L (98-107); Estimated GFR 21; Globulin 2.9 g/dL (2.4-3.5); Glucose 117 mg/dL (80-115); Potassium 3.9 mmol/L (3.5-5.1); Protein, Total 5.1 g/dL (5.8-8.1); Sodium 137 mmol/L (136-145)
[2024-06-30] MEDS: Glycopyrrolate 0.4 MG/ 2 ML VIAL SLOW IVP SCH (04:43)
[2024-06-30] MEDS: methylPREDNISolone Sod Succ/PF 125 MG/2 ML VIAL IVP SCH (04:43)
[2024-06-30 05:09] LABS: Base Excess (BEa) 5.3 mEq/L (-2.0 to +3.0); Calcium, Ionized (arterial) 1.27 mmol/L (1.12-1.30); Carboxyhemoglobin (COHb) 1.3 gm% (0.0-3.0); Hematocrit-ABG 21 % (36.0-47.0); Hemoglobin (Hb) 7.1 g/dL (12.0-16.0); O2 Tension (PaO2), arterial 121.8 mmHg (> 80.0); Potassium - ABG Lab 3.73 mmol/L (3.70-5.30); pH, Arterial 7.325 (7.35-7.45)
[2024-06-30 05:37] LABS: CO2 Tension 62.8 mmHg (35.0-45.0); Puncture Site Left Brachial artery
[2024-06-30] MEDS: Ipratropium/Albuterol 3 ML NEB NEB SCH ×2 (07:34→14:43)
[2024-06-30] MEDS ORDERED: Heparin 10,000 UNITS/ 10 ML VIAL ONE (09:54)
[2024-06-30] MEDS: methylPREDNISolone Sod Succ 40 MG VIAL IVP SCH (11:40)
[2024-06-30 12:39] LABS: Glucose 111 mg/dL (80-115)
[2024-06-30 16:59] LABS: Glucose 147 mg/dL (80-115)
[2024-07-01 01:39] LABS: Glucose 242 mg/dL (80-115)
[2024-07-01 05:33] LABS: #Basophils Less than 0.03 10x3/uL (0.0-0.2); #Eosinophils Less than 0.03 10x3/uL (0.0-0.7); %Lymphocytes 8.1 % (21.0-51.0); %Monocytes 2.9 % (0.0-10.0); %Neutrophils 88.7 % (42.0-75.0); Hematocrit 19.8 % (36.0-47.0); Hemoglobin 6.1 g/dL (12.0-16.0); Mean Corpuscular HGB CONC 30.8 g/dL (32.0-36.0); Mean Corpuscular Volume 90.8 fL (78.0-98.0); Mean Platelet Volume 10.9 fL (7.4-10.4); Platelet Count 136 10x3/uL (130-400); RBC Distribution Width 16.6 % (11.5-14.5); Red Blood Cell (RBC) Count 2.18 mill/uL (4.20-5.40)
[2024-07-01 05:38] LABS: ALT (SGPT) 11 U/L (8-55); AST (SGOT) 12 U/L (5-34); Albumin 2.1 g/dL (3.4-4.8); Alkaline Phosphatase 88 U/L (40-110); Anion Gap 11 mmol/L (10-20); BUN (Urea Nitrogen) 20 mg/dL (9.8-20.1); Bilirubin, Total 0.6 mg/dL (0.2-1.2); Calc. Creatinine Clearance 36 mL/min (70-130); Calcium 7.9 mg/dL (7.8-10.44); Carbon Dioxide 26 mmol/L (23-31); Chloride 101 mmol/L (98-107); Estimated GFR 33; Globulin 2.8 g/dL (2.4-3.5); Glucose 254 mg/dL (80-115); Potassium 4.3 mmol/L (3.5-5.1); Protein, Total 4.9 g/dL (5.8-8.1); Sodium 134 mmol/L (136-145)
[2024-07-01] MEDS: Insulin Lispro 100 UNIT/ML 10 ML VIAL SC PRN (06:16)
[2024-07-01 10:56] LABS: Hematocrit 25.4 % (36.0-47.0); Hemoglobin 8.1 g/dL (12.0-16.0)
[2024-07-02 04:53] LABS: #Basophils Less than 0.03 10x3/uL (0.0-0.2); #Eosinophils Less than 0.03 10x3/uL (0.0-0.7); %Basophils 0.1 % (0.0-1.0); %Lymphocytes 4.8 % (21.0-51.0); %Monocytes 2.6 % (0.0-10.0); Hematocrit 25.2 % (36.0-47.0); Mean Corpuscular HGB CONC 31.7 g/dL (32.0-36.0); Mean Corpuscular Hemoglobin 28.1 pg (27.0-31.0); Mean Corpuscular Volume 88.4 fL (78.0-98.0); Mean Platelet Volume 11.3 fL (7.4-10.4); Platelet Count 155 10x3/uL (130-400); RBC Distribution Width 16.4 % (11.5-14.5); Red Blood Cell (RBC) Count 2.85 mill/uL (4.20-5.40)
[2024-07-02] MEDS ORDERED: Heparin 10,000 UNITS/ 10 ML VIAL ONE (09:52)
[2024-07-03 04:30] LABS: #Basophils Less than 0.03 10x3/uL (0.0-0.2); %Eosinophils 0.4 % (0.0-10.0); %Lymphocytes 12.9 % (21.0-51.0); %Monocytes 6.4 % (0.0-10.0); %Neutrophils 79.8 % (42.0-75.0); Hematocrit 22.5 % (36.0-47.0); Hemoglobin 7.2 g/dL (12.0-16.0); Mean Corpuscular Hemoglobin 28.3 pg (27.0-31.0); Mean Corpuscular Volume 88.6 fL (78.0-98.0); Mean Platelet Volume 11.1 fL (7.4-10.4); Platelet Count 142 10x3/uL (130-400); RBC Distribution Width 16.5 % (11.5-14.5); Red Blood Cell (RBC) Count 2.54 mill/uL (4.20-5.40)
[2024-07-03 04:42] LABS: Anion Gap 9 mmol/L (10-20); BUN (Urea Nitrogen) 25 mg/dL (9.8-20.1); Calc. Creatinine Clearance 42 mL/min (70-130); Calcium 7.8 mg/dL (7.8-10.44); Carbon Dioxide 29 mmol/L (23-31); Chloride 99 mmol/L (98-107); Estimated GFR 41; Glucose 210 mg/dL (80-115); Potassium 3.8 mmol/L (3.5-5.1); Sodium 133 mmol/L (136-145)
[2024-07-04 04:00] LABS: #Basophils Less than 0.03 10x3/uL (0.0-0.2); %Basophils 0.1 % (0.0-1.0); %Eosinophils 0.4 % (0.0-10.0); %Lymphocytes 6.7 % (21.0-51.0); %Neutrophils 89.5 % (42.0-75.0); Hematocrit 22.5 % (36.0-47.0); Hemoglobin 7.2 g/dL (12.0-16.0); Mean Corpuscular Hemoglobin 28.5 pg (27.0-31.0); Mean Corpuscular Volume 88.9 fL (78.0-98.0); Mean Platelet Volume 10.6 fL (7.4-10.4); Platelet Count 118 10x3/uL (130-400); RBC Distribution Width 16.5 % (11.5-14.5); Red Blood Cell (RBC) Count 2.53 mill/uL (4.20-5.40)
[2024-07-04 04:07] LABS: Anion Gap 7 mmol/L (10-20); BUN (Urea Nitrogen) 40 mg/dL (9.8-20.1); Calc. Creatinine Clearance 32 mL/min (70-130); Calcium 8.4 mg/dL (7.8-10.44); Carbon Dioxide 30 mmol/L (23-31); Chloride 98 mmol/L (98-107); Estimated GFR 29; Glucose 226 mg/dL (80-115); Potassium 3.8 mmol/L (3.5-5.1); Sodium 131 mmol/L (136-145)
[2024-07-04] MEDS: Famotidine/PF 20 mg/2ml Vial SLOW IVP SCH (08:31)
[2024-07-04] MEDS: Famotidine 20 MG TAB PO SCH (08:31)
[2024-07-05 03:46] LABS: #Basophils Less than 0.03 10x3/uL (0.0-0.2); %Basophils 0.1 % (0.0-1.0); %Eosinophils 1.2 % (0.0-10.0); %Lymphocytes 5.9 % (21.0-51.0); %Monocytes 2.9 % (0.0-10.0); %Neutrophils 89.6 % (42.0-75.0); Hematocrit 21.3 % (36.0-47.0); Hemoglobin 6.8 g/dL (12.0-16.0); Mean Corpuscular HGB CONC 31.9 g/dL (32.0-36.0); Mean Corpuscular Hemoglobin 28.9 pg (27.0-31.0); Mean Corpuscular Volume 90.6 fL (78.0-98.0); Mean Platelet Volume 10.8 fL (7.4-10.4); Platelet Count 110 10x3/uL (130-400); Red Blood Cell (RBC) Count 2.35 mill/uL (4.20-5.40)
[2024-07-05 03:52] LABS: Anion Gap 7 mmol/L (10-20); BUN (Urea Nitrogen) 54 mg/dL (9.8-20.1); Calc. Creatinine Clearance 24 mL/min (70-130); Calcium 8.6 mg/dL (7.8-10.44); Carbon Dioxide 30 mmol/L (23-31); Chloride 98 mmol/L (98-107); Estimated GFR 20; Glucose 194 mg/dL (80-115); Potassium 3.9 mmol/L (3.5-5.1); Sodium 131 mmol/L (136-145)
[2024-07-06 05:24] LABS: #Basophils Less than 0.03 10x3/uL (0.0-0.2); %Basophils 0.1 % (0.0-1.0); %Eosinophils 1.8 % (0.0-10.0); %Lymphocytes 8.5 % (21.0-51.0); %Monocytes 3.2 % (0.0-10.0); Hematocrit 24.5 % (36.0-47.0); Hemoglobin 8.2 g/dL (12.0-16.0); Mean Corpuscular HGB CONC 33.5 g/dL (32.0-36.0); Mean Corpuscular Hemoglobin 29.4 pg (27.0-31.0); Mean Corpuscular Volume 87.8 fL (78.0-98.0); Mean Platelet Volume 10.9 fL (7.4-10.4); Platelet Count 133 10x3/uL (130-400); RBC Distribution Width 16.4 % (11.5-14.5); Red Blood Cell (RBC) Count 2.79 mill/uL (4.20-5.40)
[2024-07-06 05:50] LABS: Anion Gap 12 mmol/L (10-20); BUN (Urea Nitrogen) 65 mg/dL (9.8-20.1); Calc. Creatinine Clearance 22 mL/min (70-130); Calcium 8.5 mg/dL (7.8-10.44); Carbon Dioxide 27 mmol/L (23-31); Chloride 100 mmol/L (98-107); Estimated GFR 18; Glucose 149 mg/dL (80-115); Potassium 4.3 mmol/L (3.5-5.1); Sodium 135 mmol/L (136-145)
[2024-07-06 11:37] LABS: Fungus Culture Final report (.); Fungus Stain Final report (.)
[2024-07-06] MEDS: hydrALAZINE 20 MG/ML VIAL SLOW IVP PRN (15:35)
[2024-07-06] MEDS: Enoxaparin 30 MG (0.3 mL) SYRINGE SC SCH (20:05)
[2024-07-07 04:48] LABS: #Basophils Less than 0.03 10x3/uL (0.0-0.2); %Basophils 0.3 % (0.0-1.0); %Eosinophils 2.4 % (0.0-10.0); %Lymphocytes 9.3 % (21.0-51.0); %Monocytes 7.4 % (0.0-10.0); %Neutrophils 80.1 % (42.0-75.0); Hematocrit 25.8 % (36.0-47.0); Hemoglobin 8.4 g/dL (12.0-16.0); Mean Corpuscular HGB CONC 32.6 g/dL (32.0-36.0); Mean Corpuscular Hemoglobin 28.9 pg (27.0-31.0); Mean Corpuscular Volume 88.7 fL (78.0-98.0); Mean Platelet Volume 10.5 fL (7.4-10.4); Platelet Count 169 10x3/uL (130-400); RBC Distribution Width 16.6 % (11.5-14.5); Red Blood Cell (RBC) Count 2.91 mill/uL (4.20-5.40)
[2024-07-07 05:15] LABS: Anion Gap 10 mmol/L (10-20); BUN (Urea Nitrogen) 76 mg/dL (9.8-20.1); Calc. Creatinine Clearance 20 mL/min (70-130); Calcium 8.8 mg/dL (7.8-10.44); Carbon Dioxide 28 mmol/L (23-31); Chloride 100 mmol/L (98-107); Estimated GFR 16; Glucose 162 mg/dL (80-115); Potassium 4.3 mmol/L (3.5-5.1); Sodium 134 mmol/L (136-145)
[2024-07-07] MEDS ORDERED: Heparin 10,000 UNITS/ 10 ML VIAL ONE (10:39)
[2024-07-08 05:40] LABS: #Basophils 0.03 10x3/uL (0.0-0.2); %Basophils 0.3 % (0.0-1.0); %Eosinophils 1.9 % (0.0-10.0); %Lymphocytes 9.2 % (21.0-51.0); %Monocytes 8.1 % (0.0-10.0); Hematocrit 26.6 % (36.0-47.0); Hemoglobin 8.5 g/dL (12.0-16.0); Mean Corpuscular Hemoglobin 28.6 pg (27.0-31.0); Mean Corpuscular Volume 89.6 fL (78.0-98.0); Mean Platelet Volume 10.1 fL (7.4-10.4); Platelet Count 181 10x3/uL (130-400); RBC Distribution Width 16.8 % (11.5-14.5); Red Blood Cell (RBC) Count 2.97 mill/uL (4.20-5.40)
[2024-07-08 06:09] LABS: Anion Gap 9 mmol/L (10-20); BUN (Urea Nitrogen) 47 mg/dL (9.8-20.1); CK (CPK) 82 U/L (29-168); Calc. Creatinine Clearance 30 mL/min (70-130); Carbon Dioxide 31 mmol/L (23-31); Chloride 101 mmol/L (98-107); Estimated GFR 26; Glucose 193 mg/dL (80-115); Magnesium 2.1 mg/dL (1.6-2.6); Potassium 3.5 mmol/L (3.5-5.1); Sodium 137 mmol/L (136-145)
[2024-07-08 06:42] LABS: Phosphorus Less than 0.7 mg/dL (2.3-4.7)
[2024-07-08] MEDS: Potassium Phosphate 30 MMOL in Sodium Chloride 0.9% 250 ML 250 ML IVPB SCH (14:30)
[2024-07-08] MEDS: HYDROcodone/Acetaminophen 5/325 mg Tablet PO PRN (16:30)
[2024-07-09 04:37] LABS: Hematocrit 22.7 % (36.0-47.0); Hemoglobin 7.1 g/dL (12.0-16.0); Mean Corpuscular HGB CONC 31.3 g/dL (32.0-36.0); Mean Corpuscular Hemoglobin 28.5 pg (27.0-31.0); Mean Corpuscular Volume 91.2 fL (78.0-98.0); Mean Platelet Volume 10.2 fL (7.4-10.4); Platelet Count 172 10x3/uL (130-400); RBC Distribution Width 16.9 % (11.5-14.5); Red Blood Cell (RBC) Count 2.49 mill/uL (4.20-5.40)
[2024-07-09 04:43] LABS: Calc. Creatinine Clearance 24 mL/min (70-130); Estimated GFR 20
[2024-07-09 04:44] LABS: Anion Gap 8 mmol/L (10-20); BUN (Urea Nitrogen) 61 mg/dL (9.8-20.1); Calcium 8.6 mg/dL (7.8-10.44); Carbon Dioxide 29 mmol/L (23-31); Chloride 101 mmol/L (98-107); Glucose 145 mg/dL (80-115); Potassium 4.1 mmol/L (3.5-5.1); Sodium 134 mmol/L (136-145)
[2024-07-09 05:18] LABS: Anisocytosis SLIGHT = 6-15 cells HPF (0-5); Band 18 % (5-11); Eosinophils 4 % (0-10); Hypochromia MODERATE=16-30 cells HPF (0-5); Large Platelets 7.9 % (0-5); Lymphocytes 5 % (21-51); Monocytes 4 % (0-10); Neutrophil 69 % (42-75); Platelet Adequacy Comment Platelets Normal; Poikilocytosis SLIGHT = 6-15 cells HPF (0-5); Polychromasia SLIGHT = 2-3 cells HPF (0-2)
[2024-07-09] MEDS ORDERED: Labetalol HCl 100 MG/20 ML VIAL SLOW IVP PRN (19:46)
[2024-07-10 05:02] LABS: Hematocrit 24.6 % (36.0-47.0); Hemoglobin 7.8 g/dL (12.0-16.0)
[2024-07-10] MEDS: Amlodipine 5 MG TAB PO SCH (09:25)
[2024-07-10 10:11] VITALS: BMI 28.9
[2024-07-11] MEDS: Multivits W-Minerals Liquid 15 ML UDCUP PER TUBE SCH (09:55)
[2024-07-11] MEDS ORDERED: Heparin 10,000 UNITS/ 10 ML VIAL ONE (10:54)
[2024-07-11 12:24] LABS: Hematocrit 22.6 % (36.0-47.0); Hemoglobin 7.2 g/dL (12.0-16.0); Mean Corpuscular HGB CONC 31.9 g/dL (32.0-36.0); Mean Corpuscular Hemoglobin 28.5 pg (27.0-31.0); Mean Corpuscular Volume 89.3 fL (78.0-98.0); Platelet Count 189 10x3/uL (130-400); RBC Distribution Width 16.9 % (11.5-14.5); Red Blood Cell (RBC) Count 2.53 mill/uL (4.20-5.40)
[2024-07-11 12:37] LABS: Anion Gap 8 mmol/L (10-20); BUN (Urea Nitrogen) 26 mg/dL (9.8-20.1); Calc. Creatinine Clearance 47 mL/min (70-130); Calcium 8.2 mg/dL (7.8-10.44); Carbon Dioxide 29 mmol/L (23-31); Chloride 102 mmol/L (98-107); Estimated GFR 46; Glucose 105 mg/dL (80-115); Potassium 3.3 mmol/L (3.5-5.1); Sodium 136 mmol/L (136-145)
[2024-07-11 13:00] LABS: HBSAB Concentration Less than 8.00 mIU/mL; HBsAg Index 0.23 S/CO (0-0.99); Hep B Core Total Ab NONREACTIVE (NonReactive); Hep B Core Total Index 0.18 S/CO (0-0.79); Hep B Surf AB NONREACTIVE (NonReactive); Hep B Surf Ag NONREACTIVE S/CO (NonReactive); Hep C IgG Ab NONREACTIVE S/CO (NonReactive); Hep C Index 0.17 S/CO (0-0.79)
[2024-07-11 13:12] LABS: Anisocytosis SLIGHT = 6-15 cells HPF (0-5); Band 5 % (5-11); Burr Cells SLIGHT = 2-5 cells HPF (0-1); Eosinophils 2 % (0-10); Lymphocytes 4 % (21-51); Monocytes 1 % (0-10); Neutrophil 87 % (42-75); Platelet Adequacy Comment Platelets Normal; Polychromasia MODERATE = 3-4 cells HPF (0-2)
[2024-07-12] MEDS: Lactulose 20 GM (30 mL) UDCUP PO SCH (21:10)
[2024-07-13 05:30] VITALS: BMI 29.1
[2024-07-13 09:27] LABS: #Basophils 0.04 10x3/uL (0.0-0.2); %Basophils 0.7 % (0.0-1.0); %Eosinophils 2.3 % (0.0-10.0); %Lymphocytes 10.6 % (21.0-51.0); %Monocytes 4.6 % (0.0-10.0); %Neutrophils 81.3 % (42.0-75.0); Hematocrit 29.8 % (36.0-47.0); Hemoglobin 9.4 g/dL (12.0-16.0); Mean Corpuscular HGB CONC 31.5 g/dL (32.0-36.0); Mean Corpuscular Hemoglobin 28.4 pg (27.0-31.0); Mean Platelet Volume 10.5 fL (7.4-10.4); Platelet Count 205 10x3/uL (130-400); Red Blood Cell (RBC) Count 3.31 mill/uL (4.20-5.40)
[2024-07-13 10:00] LABS: Anion Gap 18 mmol/L (10-20); BUN (Urea Nitrogen) 58 mg/dL (9.8-20.1); Calc. Creatinine Clearance 25 mL/min (70-130); Calcium 7.3 mg/dL (7.8-10.44); Carbon Dioxide 24 mmol/L (23-31); Chloride 102 mmol/L (98-107); Estimated GFR 20; Glucose 169 mg/dL (80-115); Potassium 6.5 mmol/L (3.5-5.1); Sodium 137 mmol/L (136-145)
[2024-07-13 10:36] VITALS: TEMP 98
[2024-07-13] MEDS: LOKELMA 10 GM PACKET PO SCH (12:13)
[2024-07-13] MEDS ORDERED: CALCIUM GLUC 1 GM/NS 50 ML 1 GM in Premix 1 BAG IVPB SCH (12:45)
[2024-07-13] MEDS: Insulin Regular, Human 100 UNIT/ML 10 ML VIAL IVP SCH (13:06)
[2024-07-13] MEDS: Dextrose 50% Abboject 50 ML SYRINGE SLOW IVP PRN (13:06)
[2024-07-13 15:18] VITALS: BP 139/66
[2024-07-13 18:37] LABS: Potassium 3.8 mmol/L (3.5-5.1)
[2024-07-13] MEDS ORDERED: Apixaban 5 MG TAB PO SCH (21:00)
== END 2024-07-13 18:37 | disposition expired | DRG 291 ==
LOC: T4-B 05-08 17:57 → OBSVTOIN 05-10 12:31 → CCU 05-23 22:39 → T4-B 05-24 23:08 → CCU 06-21 04:49 → SURG B 06-21 20:24 → CCU 06-28 11:05 → IMCU/EMU 07-12 18:36
PROVIDERS: ADMIT Hospitalist; ATTEND Internal Medicine
PROC: 0JPTXXZ Removal of Tunneled Vascular Access Device from Trunk Subcutaneous Tissue and Fascia, External Approach (ICD-10-PCS; principal; 2024-05-29)
PROC: 05PYX3Z Removal of Infusion Device from Upper Vein, External Approach (ICD-10-PCS; 2024-05-29)
PROC: 0JH60XZ Insertion of Tunneled Vascular Access Device into Chest Subcutaneous Tissue and Fascia, Open Approach (ICD-10-PCS; 2024-05-29)
PROC: 02HV33Z Insertion of Infusion Device into Superior Vena Cava, Percutaneous Approach (ICD-10-PCS; 2024-05-29)
PROC: B518ZZA Fluoroscopy of Superior Vena Cava, Guidance (ICD-10-PCS; 2024-05-29)
PROC: B548ZZA Ultrasonography of Superior Vena Cava, Guidance (ICD-10-PCS; 2024-05-29)
DX: I13.2 Hypertensive heart and chronic kidney disease with heart failure and with stage 5 chronic kidney disease, or end stage renal disease (principal); A41.02 Sepsis due to Methicillin resistant Staphylococcus aureus; I50.43 Acute on chronic combined systolic (congestive) and diastolic (congestive) heart failure; L89.153 Pressure ulcer of sacral region, stage 3; L89.313 Pressure ulcer of right buttock, stage 3; N18.6 End stage renal disease; R65.21 Severe sepsis with septic shock; T80.211A Bloodstream infection due to central venous catheter, initial encounter; N25.81 Secondary hyperparathyroidism of renal origin; J98.11 Atelectasis; E87.1 Hypo-osmolality and hyponatremia; N17.9 Acute kidney failure, unspecified; Z43.0 Encounter for attention to tracheostomy; I48.0 Paroxysmal atrial fibrillation; Z99.2 Dependence on renal dialysis; E78.5 Hyperlipidemia, unspecified; E11.22 Type 2 diabetes mellitus with diabetic chronic kidney disease; D63.1 Anemia in chronic kidney disease; E87.5 Hyperkalemia; J39.8 Other specified diseases of upper respiratory tract; E66.01 Morbid (severe) obesity due to excess calories; Z87.891 Personal history of nicotine dependence; Z93.1 Gastrostomy status; Z79.899 Other long term (current) drug therapy; Z79.890 Hormone replacement therapy; Z79.01 Long term (current) use of anticoagulants; Y71.2 Prosthetic and other implants, materials and accessory cardiovascular devices associated with adverse incidents; Y92.89 Other specified places as the place of occurrence of the external cause; Y84.0 Cardiac catheterization as the cause of abnormal reaction of the patient, or of later complication, without mention of misadventure at the time of the procedure; Z68.29 Body mass index [BMI] 29.0-29.9, adult; L30.4 Erythema intertrigo
CPT/HCPCS: 36415; 36416; 36430; 36600; 36901; 36902; 71045; 71250; 71260; 72129; 72132; 74177; 77002; 80048; 80053; 80202; 82533; 82550; 82805; 83605; 83735; 84100; 84439; 84443; 84484; 85014; 85018; 85025; 85027; 85379; 85384; 85610; 85730; 86141; 86580; 86704; 86706; 86803; 86850; 86900; 86901; 87040; 87070; 87071; 87077; 87102; 87149; 87186; 87205; 87206; 87340; 90935; 93005; 93010; 93306; 94002; 94003; 94640; 96372; 96374; 97139; 99152; A6258; C1725; C1750; C1751; C1752; C1769; C1887; C1894; G0257; G0378; J0171; J0360; J0613; J0665; J0690; J0692; J0712; J0878; J1100; J1642; J1644; J1650; J1720; J1815; J2060; J2248; J2250; J2272; J2405; J2704; J2919; J3010; J3370; J3371; J3490; J7030; J7050; J7120; J7611; J7620; J7999; P9016; P9045; P9047; Q0162; Q5105; Q9967